=== PATIENT | male | born 1955 | race Caucasian/White ===

== ENCOUNTER 2017-02-22 11:44 | Observation (INO) | payer BC ==
[2017-02-22] MEDS ORDERED: Nitroglycerin 0.4 MG Tab.SL SL PRN (11:48)
[2017-02-22] MEDS ORDERED: Aspirin 81 MG Tab.Chew PO ONE (11:48)
[2017-02-22] MEDS ORDERED: Sodium Chloride 0.9% 2.5 ML Syringe FLUSH PRN (11:48)
[2017-02-22] MEDS ORDERED: Sodium Chloride 0.9% 10 ML Syringe FLUSH PRN (11:48)
--- NOTE | 2017-02-22 11:49 | EDM.PDOC ---
[id number] Seen by Provider: 02/22/17 11:47 Source of Information: Reports: Patient History Limitations: Reports: No limitations - History of Present Illness INITIAL COMMENTS - FREE TEXT/NARRATIVE: History of present illness: [] Patient presents with chest pressure is under his left shoulder blade with numbness radiating to his left arm that began at 10:00 this morning. Patient has not had these symptoms in the past. He denies any shortness of breath, sweating or syncope, he did have some lightheadedness and was not vertiginous. His chest pressure was rated at a 2/10 at its worst and is currently 0/10 while in the ED. Patient denies being a smoker. he does have a family history of heart disease Review of systems: As per history of present illness and below otherwise all systems reviewed and negative. Past medical history: As per history of present illness and as reviewed below otherwise noncontributory. Surgical history: As per history of present illness and as reviewed below otherwise noncontributory. Social history: No reported history of drug or alcohol abuse. Family history: As per history of present illness and as reviewed below otherwise noncontributory. Physical exam: General: Well developed, well nourished in NAD HEENT: Atraumatic, normocephalic, pupils reactive, negative for conjunctival pallor or scleral icterus, mucous membranes moist, throat clear, neck supple, nontender, trachea midline. Lungs: Clear to auscultation, breath sounds equal bilaterally, chest nontender. Heart: S1S2, regular, negative for clicks, rubs, or JVD. Abdomen: Soft, nondistended, nontender. Negative for masses or hepatosplenomegaly. Negative for costovertebral tenderness. Pelvis: Stable nontender. Genitourinary: Deferred. Rectal: Deferred. Extremities: Atraumatic, negative for cords or calf pain. Neurovascular unremarkable. Neuro: Awake, alert, oriented. Cranial nerves II through XII unremarkable. Cerebellum unremarkable. Motor and sensory unremarkable throughout. Exam nonfocal. Diagnostics: [] Cardiac workup done EKG shows sinus rhythm with PVCs and no acute ischemia, nonspecific T wave Therapeutics: [] Aspirin and nitroglycerin was given Impression: [] Chest pain, hypertension Plan: [] Admit for ACS Definitive disposition and diagnosis as appropriate pending reevaluation and review of above. - Related Data Allergies/ADRs: Allergies Allergy/AdvReac Type Severity Reaction Status Date / Time ty Allergy Numbness Verified 02/22/17 12:00 Home Meds: Home Meds . [No Known Home Meds] 02/22/17 [History] ED ROS GENERAL - Review of Systems Review Of Systems: See Below (See history of present illness) ED EXAM, GENERAL - Physical Exam Exam: See Below (See history of present illness) Course - Vital Signs Last Recorded V/S: Last Vital Signs Temp 36.7 C 02/22/17 13:27 Pulse 54 L 02/22/17 14:42 Resp 16 02/22/17 14:42 BP 145/82 H 02/22/17 14:42 Pulse Ox 96 02/22/17 14:42 - Orders/Labs/Meds Orders: Active Orders 24 hr Category Date Time Status Patient Status [ADT] Stat ADT 02/22/17 12:51 Active Sodium Chloride 0.9% [Saline Flush] Med 02/22/17 11:48 Active 10 ml FLUSH ASDIRECTED PRN Sodium Chloride 0.9% [Saline Flush] Med 02/22/17 11:48 Active 2.5 ml FLUSH ASDIRECTED PRN Peripheral IV Insertion Adult [OM.PC] Stat Oth 02/22/17 11:48 Ordered Medication Orders Acetaminophen (Tylenol) 650 mg PO Q4H PRN PRN Reason: Pain Albuterol (Proventil Neb Soln) 2.5 mg NEB Q4H PRN PRN Reason: Shortness Of Breath/wheezing Aspirin (Aspirin) 81 mg PO DAILY MOSES Ondansetron HCl (Zofran) 4 mg IVPUSH Q4H PRN PRN Reason: Nausea Sodium Chloride (Saline Flush) 10 ml FLUSH ASDIRECTED PRN PRN Reason: Keep Vein Open Last Admin: 02/22/17 12:18 Dose: 10 ml Sodium Chloride (Saline Flush) 2.5 ml FLUSH ASDIRECTED PRN PRN Reason: Keep Vein Open Last Admin: 02/22/17 12:18 Dose: 2.5 ml Labs: Laboratory Tests 02/22/17 02/22/17 02/22/17 Range/Units 11:52 11:52 11:52 WBC 8.02 (4.0-11.0) K/uL RBC 5.12 (4.50-5.90) M/uL Hgb 15.2 (13.0-17.0) g/dL Hct 44.4 (38.0-50.0) % MCV 86.7 (80.0-98.0) fL MCH 29.7 (27.0-32.0) pg MCHC 34.2 (31.0-37.0) g/dL RDW Std Deviation 41.3 (28.0-62.0) fl RDW Coeff of Tamara 13 (11.0-15.0) % Plt Count 233 (150-400) K/uL MPV 9.30 (7.40-12.00) fL Neut % (Auto) 55.7 (48.0-80.0) % Lymph % (Auto) 30.9 (16.0-40.0) % [place] % (Auto) 9.9 (0.0-15.0) % Eos % (Auto) 3.0 (0.0-7.0) % Baso % (Auto) 0.5 (0.0-1.5) % Neut # (Auto) 4.5 (1.4-5.7) K/uL Lymph # (Auto) 2.5 H (0.6-2.4) K/uL [place] # (Auto) 0.8 (0.0-0.8) K/uL Eos # (Auto) 0.2 (0.0-0.7) K/uL Baso # (Auto) 0.0 (0.0-0.1) K/uL Nucleated RBC % 0.0 /100WBC Nucleated RBCs # 0 K/uL Sodium 142 (136-146) mmol/L Potassium 3.9 (3.5-5.1) mmol/L Chloride 110 (98-110) mmol/L Carbon Dioxide 25 (21-31) mmol/L BUN 13 (6.0-23.0) mg/dL Creatinine 0.9 (0.6-1.5) mg/dL Est Cr Clr Drug Dosing 98.94 mL/min Estimated GFR (MDRD) > 60.0 ml/min Glucose 95 (60-110) mg/dL Hemoglobin A1c (0.0-6.0) % Calcium 9.0 (8.8-10.8) mg/dL Magnesium (1.5-2.3) mEq/L Total Bilirubin 0.8 (0.1-1.5) mg/dL AST 23 (5-40) IU/L ALT 18 (8-54) IU/L Alkaline Phosphatase 69 (40-150) Troponin I < 0.10 (0.0-0.29) NG/ML Total Protein 7.0 (6.0-8.0) g/dL Albumin 4.2 (3.4-4.8) g/dL Globulin 2.8 (2.0-3.5) g/dL Albumin/Globulin Ratio 1.5 (1.3-2.8) 02/22/17 02/22/17 Range/Units 11:52 11:52 WBC (4.0-11.0) K/uL RBC (4.50-5.90) M/uL Hgb (13.0-17.0) g/dL Hct (38.0-50.0) % MCV (80.0-98.0) fL MCH (27.0-32.0) pg MCHC (31.0-37.0) g/dL RDW Std Deviation (28.0-62.0) fl RDW Coeff of Tamara (11.0-15.0) % Plt Count (150-400) K/uL MPV (7.40-12.00) fL Neut % (Auto) (48.0-80.0) % Lymph % (Auto) (16.0-40.0) % [place] % (Auto) (0.0-15.0) % Eos % (Auto) (0.0-7.0) % Baso % (Auto) (0.0-1.5) % Neut # (Auto) (1.4-5.7) K/uL Lymph # (Auto) (0.6-2.4) K/uL [place] # (Auto) (0.0-0.8) K/uL Eos # (Auto) (0.0-0.7) K/uL Baso # (Auto) (0.0-0.1) K/uL Nucleated RBC % /100WBC Nucleated RBCs # K/uL Sodium (136-146) mmol/L Potassium (3.5-5.1) mmol/L Chloride (98-110) mmol/L Carbon Dioxide (21-31) mmol/L BUN (6.0-23.0) mg/dL Creatinine (0.6-1.5) mg/dL Est Cr Clr Drug Dosing mL/min Estimated GFR (MDRD) ml/min Glucose (60-110) mg/dL Hemoglobin A1c 5.4 (0.0-6.0) % Calcium (8.8-10.8) mg/dL Magnesium 2.3 (1.5-2.3) mEq/L Total Bilirubin (0.1-1.5) mg/dL AST (5-40) IU/L ALT (8-54) IU/L Alkaline Phosphatase (40-150) Troponin I (0.0-0.29) NG/ML Total Protein (6.0-8.0) g/dL Albumin (3.4-4.8) g/dL Globulin (2.0-3.5) g/dL Albumin/Globulin Ratio (1.3-2.8) Meds: Medications Generic Name Dose Route Start Last Admin Trade Name Freq PRN Reason Stop Dose Admin Acetaminophen 650 mg 02/22/17 13:03 Tylenol PO Q4H PRN Pain Albuterol 2.5 mg 02/22/17 14:04 Proventil Neb Soln NEB Q4H PRN Shortness Of Breath/wheezing Aspirin 81 mg 02/23/17 09:00 Aspirin PO DAILY MOSES Ondansetron HCl 4 mg 02/22/17 13:03 Zofran IVPUSH Q4H PRN Nausea Sodium Chloride 10 ml 02/22/17 11:48 02/22/17 12:18 Saline Flush FLUSH 10 ml ASDIRECTED PRN Administration Keep Vein Open Sodium Chloride 2.5 ml 02/22/17 11:48 02/22/17 12:18 Saline Flush FLUSH 2.5 ml ASDIRECTED PRN Administration Keep Vein Open Discontinued Medications Generic Name Dose Route Start Last Admin Trade Name Freq PRN Reason Stop Dose Admin Aspirin 324 mg 02/22/17 11:48 02/22/17 12:17 Aspirin PO 02/22/17 11:49 324 mg ONETIME ONE Administration Metoprolol Tartrate 25 mg 02/22/17 14:05 02/22/17 14:42 Lopressor PO 02/22/17 14:06 25 mg ONETIME ONE Administration Nitroglycerin 0.4 mg 02/22/17 11:48 Nitrostat SL 02/22/17 11:59 Q5M PRN Chest Pain Departure - Departure Time of Disposition: 13:30 Disposition: Admitted As Inpatient 65 Condition: good Clinical Impression: ACS (acute coronary syndrome) - My Orders Last 24 Hours: My Active Orders 02/22/17 11:48 Sodium Chloride 0.9% [Saline Flush] 10 ml FLUSH ASDIRECTED PRN Sodium Chloride 0.9% [Saline Flush] 2.5 ml FLUSH ASDIRECTED PRN Peripheral IV Insertion Adult [OM.PC] Stat 02/22/17 12:51 Patient Status [ADT] Stat - Assessment/Plan Last 24 Hours: My Active Orders 02/22/17 11:48 Sodium Chloride 0.9% [Saline Flush] 10 ml FLUSH ASDIRECTED PRN Sodium Chloride 0.9% [Saline Flush] 2.5 ml FLUSH ASDIRECTED PRN Peripheral IV Insertion Adult [OM.PC] Stat 02/22/17 12:51 Patient Status [ADT] Stat
[2017-02-22 12:18] LABS: CHLORIDE,CL 110 mmol/L (98-110); SODIUM,NA 142 mmol/L (136-146)
--- NOTE | 2017-02-22 12:33 | CR ---
EXAMINATION: Portable chest radiograph. HISTORY: Shortness of breath. Comparison: 05/26/2012 FINDINGS: The trachea is midline. The cardiomediastinal silhouette is within normal limits. No pulmonary infil trates, effusions or pneumothorax. Osseous structures appear unremarkable. IMPRESSION: No acute cardiopulmonary process.
[2017-02-22] MEDS ORDERED: Acetaminophen 325 MG Tab PO PRN (13:03)
[2017-02-22] MEDS ORDERED: Ondansetron 4 MG/2 ML SDV IVPUSH PRN (13:03)
--- NOTE | 2017-02-22 13:15 | PCM.HP ---
H&P History of Present Illness - General Date of Service: 02/22/17 Source of Information: Patient, Family ( at bedside) History Limitations: Reports: No limitations - History of Present Illness Initial Comments - Free Text/Narative: This 61 year old male no significant pmh presented to the ED today with l sided chest discomfort. He reports he was standing and working on some tools at a workbench and felt SOB, some lower left chest pressure that radiated some numbness to his L arm. He reports the pain did not worsen with activity but didn 't necessarily change with rest. He reports the pain went away when he got to the ED after he was given ASA. He was not give nitroglycerin. He reports having a cold a couple weeks ago and feels like it is still lingering in his chest, and now states the discomfort in his chest is more a feeling of congestion. He has been more SOB with activity the last two weeks, but otherwise has had no SOB with activity and is very activity in his daily life, he walks 10 acres with his dog daily. He does not smoke or use any tobacco products, no alcohol use or recreational drug use. He does have a family history of CAD, his father recent had mitral valve clipping and his brother had triple bypass recently as well. 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 He denies palpitations, N/V, abdominal pain or urinary symptoms. No black or blood BMs. He takes no medication at home. In the ED, CBC and BMP WNL. Initial troponin negative. ASA was given. EKG SR HR 90s, no st segment changes, PACs and PVCs noted. CXR negative for acute cardiopulmonary process. He will be admitted for chest pain R/O ACS. PCP Pam Leal. Midsternal chest/left shoulder Pain Score (Numeric/FACES): 2 - Related Data Allergies/Adverse Reactions: Allergies Allergy/AdvReac Type Severity Reaction Status Date / Time juliwi Allergy Numbness Verified 02/22/17 12:00 Home Medications: Home Meds . [No Known Home Meds] 02/22/17 [History] Past Medical History HEENT History: Reports: None Cardiovascular History: Reports: None. Denies: CAD, Heart Failure, High cholesterol, Hypertension, MD Respiratory History: Reports: None. Denies: Asthma, COPD, PE Gastrointestinal History: Reports: None. Denies: Diverticulosis, GERD, GI bleed Genitourinary History: Reports: None. Denies: BPH, Chronic renal insuffiency Musculoskeletal History: Reports: None Neurological History: Reports: None. Denies: CVA, TIA Psychiatric History: Reports: None Endocrine/Metabolic History: Reports: None. Denies: Diabetes, type II, Hypothyroidism Hematologic History: Reports: None Immunologic History: Reports: None Oncologic (Cancer) History: Reports: None Dermatologic History: Reports: None - Infectious Disease History Infectious Disease History: Reports: None - Past Surgical History Head Surgeries/Procedures: Reports: None HEENT Surgical History: Reports: None Cardiovascular Surgical History: Reports: None Respiratory Surgical History: Reports: None GI Surgical History: Reports: None Male Surgical History: Reports: None Endocrine Surgical History: Reports: None Neurological Surgical History: Reports: None Musculoskeletal Surgical History: Reports: None Dermatological Surgical History: Reports: None Social & Family History - Family History Family Medical History: Noncontributory Cardiac: Reports: CAD, Hypertension, Other (see below) (brother had triple bypass) - Tobacco Use Smoking Status *Q: Never Smoker Second Hand Smoke Exposure: No - Caffeine Use Caffeine Use: Reports: Coffee - Recreational Drug Use Recreational Drug Use: No H&P Review of Systems - Review of Systems: Review Of Systems: See Below General: Reports: no symptoms. Denies: fever, chills, malaise HEENT: Reports: post nasal drip. Denies: sinus congestion, sore throat Pulmonary: Reports: Shortness of Breath (intermittently), Cough, Other ( congested feeling, ). Denies: Sputum Cardiovascular: Reports: dyspnea on exertion (intermittently last 2 weeks). Denies: chest pain, palpitations, edema, lightheadedness, syncope Gastrointestinal: Reports: No symptoms. Denies: Abdominal pain, Black stool, Bloody stool, Decreased appetite, Nausea, Vomiting Genitourinary: Reports: no symptoms. Denies: dysuria, frequency, burning Musculoskeletal: Reports: no symptoms. Denies: neck pain Skin: Reports: no symptoms Psychiatric: Reports: no symptoms Neurological: Reports: No Symptoms. Denies: Headache, Seizure Hematologic/Lymphatic: Reports: no symptoms Immunologic: Reports: no symptoms Exam - Exam Exam: See Below - Vital Signs Vital Signs: Last Vital Signs Temp 97.8 F 02/22/17 11:54 Pulse 70 02/22/17 12:18 Resp 16 02/22/17 11:54 BP 146/88 H 02/22/17 12:18 Pulse Ox 99 02/22/17 11:54 Weight: 92.533 kg - Exam Quality Assessment: DVT prophylaxis General: alert, oriented, cooperative HEENT: Conjunctiva clear, EACs clear, EOMI, Hearing intact, Mucosa moist & pink , Nares patent, Posterior pharynx clear, PERRLA Lungs: Clear to auscultation, Normal respiratory effort Cardiovascular: regular rate, irregular rhythm. No: systolic murmur Abdomen: normal bowel sounds, soft Back Exam: normal inspection, full range of motion, NT Extremities: normal inspection, normal pulses Neuro Extensive - Mental Status: alert, oriented x3, normal mood/affect, normal cognition Neuro Extensive - Motor, Sensory, Reflexes: CN II-XII intact, normal gait, normal reflexes Psychiatric: alert, normal affect, normal mood - Patient Data Result Diagrams: 02/22/17 11:52 02/22/17 11:52 EKG INTERPRETATION EKG Date: 02/22/17 Rhythm: NSR Rate (beats/min): 96 P-wave: present QRS: normal ST-T: normal EKG Interpretation Comments: SR with frequent PACs and PVCs. *Q Meaningful Use (ADM) - VTE *Q VTE Criteria *Q: - VTE Risk Assess *Q Each Risk Factor Represents 1 Point: None Total Score 1 Point Risk Factors: 0 Each Risk Factor Represents 2 Points: Age 60 - 74 Years Total Score 2 Point Risk Factors: 2 Each Risk Factor Represents 3 Points: None Total Score 3 Point Risk Factors: 0 Each Risk Factor Represents 5 Points: None Total Score 5 Point Risk Factors: 0 Venous Thromboembolism Risk Factor Score *Q: 2 - Stroke *Q Stroke Criteria *Q: - AMI *Q AMI Criteria *Q: - Problem List (1) Chest pain SNOMED Code(s): 09416724 ICD Code: R07.9 - CHEST PAIN, UNSPECIFIED Status: Acute Current Visit: Yes Qualifiers: Chest pain type: other chest pain Qualified Code(s): R07.89 - Other chest pain; R07.8 - Other chest pain (2) Irregular heart beat SNOMED Code(s): 515683270, 023635873, 352603581 ICD Code: I49.9 - CARDIAC ARRHYTHMIA, UNSPECIFIED Status: Acute Current Visit: Yes (3) HTN (hypertension) SNOMED Code(s): 32552821 ICD Code: I10 - ESSENTIAL (PRIMARY) HYPERTENSION Status: Acute Current Visit: Yes Qualifiers: Hypertension type: essential hypertension Qualified Code(s): I10 - Essential (primary) hypertension Problem List Initiated/Reviewed/Updated: Yes Orders Last 24hrs: Active Orders 24 hr Category Date Time Status Telemetry Monitoring [Cardiac Monitoring] [RC] . Care 02/22/17 13:08 Active DIRECTED Aspirin Med 02/23/17 09:00 Ordered 81 mg PO DAILY Medication Orders Acetaminophen (Tylenol) 650 mg PO Q4H PRN PRN Reason: Pain Aspirin (Aspirin) 81 mg PO DAILY MOSES Ondansetron HCl (Zofran) 4 mg IVPUSH Q4H PRN PRN Reason: Nausea Sodium Chloride (Saline Flush) 10 ml FLUSH ASDIRECTED PRN PRN Reason: Keep Vein Open Last Admin: 02/22/17 12:18 Dose: 10 ml Sodium Chloride (Saline Flush) 2.5 ml FLUSH ASDIRECTED PRN PRN Reason: Keep Vein Open Last Admin: 02/22/17 12:18 Dose: 2.5 ml Assessment/Plan Comment:: This 61 year old male admitted with chest pain R/O ACS 1. Chest pain: Will monitor on telemetry. Serial troponins. Check A1c, 5.4, and Lipid panel in am. ASA. 2. Elevated BP: Will start Metoprolol due to elevated BP and PVCS and PACs noted. WIll monitor HR and BP. Magnesium 2.3 VTE: SCDs
[2017-02-22] MEDS ORDERED: Albuterol 0.083% 2.5 MG/3 ML Neb Soln NEB PRN (14:04)
[2017-02-22] MEDS ORDERED: Metoprolol Tartrate 25 MG Tab PO ONE (14:05)
[2017-02-23 07:28] VITALS: BP 139/79
[2017-02-23] MEDS ORDERED: Aspirin 81 MG Tab.Chew PO SCH (09:00)
[2017-02-23] MEDS ORDERED: Metoprolol Tartrate 25 MG Tab PO SCH (09:00)
--- NOTE | 2017-02-23 09:32 | PCM.DCSUM1 ---
Discharge Summary - Hospital Course Brief History: This 61 year old male no significant pmh presented to the ED 02/22 with L sided chest discomfort. He reports he was standing and working on some tools at a workbench and felt SOB, some lower left chest pressure that radiated some numbness to his L arm. He reports the pain did not worsen with activity but didn't necessarily change with rest. He reports the pain went away when he got to the ED after he was given ASA. He was not give nitroglycerin. He reports having a cold a couple weeks ago and feels like it is still lingering in his chest, and now states the discomfort in his chest is more a feeling of congestion. He has been more SOB with activity the last two weeks, but otherwise has had no SOB with activity and is very activity in his daily life, he walks 10 acres with his dog daily. He does not smoke or use any tobacco products, no alcohol use or recreational drug use. He does have a family history of CAD, his father recent had mitral valve clipping and his brother had triple bypass recently as well. 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 He denies palpitations, N/V, abdominal pain or urinary symptoms. No black or blood BMs. He takes no medication at home. In the ED, CBC and BMP WNL. Initial troponin negative. ASA was given. EKG SR HR 90s, no ST segment changes, PACs and PVCs noted. CXR negative for acute cardiopulmonary process. He will be admitted for chest pain R /O ACS. PCP Pam Leal. - Discharge Data Discharge Date: 02/23/17 Discharge Disposition: Home, Self-Care 01 Condition: Good - Discharge Diagnosis/Problem(s) (1) Chest pain SNOMED Code(s): 24189947 ICD Code: R07.9 - CHEST PAIN, UNSPECIFIED Status: Acute Current Visit: Yes Qualifiers: Qualified Code(s): R07.89 - Other chest pain; R07.8 - Other chest pain (2) Irregular heart beat SNOMED Code(s): 775958947, [id number], 620597745 ICD Code: I49.9 - CARDIAC ARRHYTHMIA, UNSPECIFIED Status: Acute Current Visit: Yes (3) HTN (hypertension) SNOMED Code(s): 68164049 ICD Code: I10 - ESSENTIAL (PRIMARY) HYPERTENSION Status: Acute Current Visit: Yes Qualifiers: Qualified Code(s): I10 - Essential (primary) hypertension (4) Afib SNOMED Code(s): 87610921 ICD Code: I48.91 - UNSPECIFIED ATRIAL FIBRILLATION Status: Acute Current Visit: Yes Qualifiers: Qualified Code(s): I48.0 - Paroxysmal atrial fibrillation - Patient Instructions Diet: Heart Healthy Diet Activity: As Tolerated, No Strenuous Activities Driving: May Drive Today Showering/Bathing: May Shower Notify Provider of: Fever, Increased Pain, Swelling and Redness, Drainage, Nausea and/or Vomiting - Discharge Plan Prescriptions/Med Rec: Aspirin 81 mg PO DAILY #30 tab.chew Metoprolol Succinate 50 mg PO DAILY #30 tab.er.24h Home Medications: Home Meds Aspirin 81 mg PO DAILY #30 tab.chew 02/23/17 [Rx] Metoprolol Succinate 50 mg PO DAILY #30 tab.er.24h 02/23/17 [Rx] Patient Handouts: Metoprolol extended-release tablets, Hypertension, Easy-to- Read, Acute Coronary Syndrome, Aspirin, ASA oral tablets Referrals: [facility] [Outside] González Doran MD [Physician] - 02/28/17 8:00 am (follow up in 1 week) - Discharge Summary/Plan Comment DC Time >30 min.: No Discharge Summary/Plan Comment: Discharge Diagnoses: New onset Afib, paroxysmal Arnaldo was monitored overnight on telemetry. IT was noted overnight to go into atrial fibrillation and then back to SR which happened again this morning. He reported this morning he does get palpitations intermittently at night. He doesn 't feel short of breath with these, but can definitely feel palpitations and no chest pain. Yesterday he doesn't recall feeling palpitations when he had this chest discomfort but he was up moving. He was started on Metoprolol yesterday afternoon due to BP elevation and irregular HR, not afib at the time. This morning he is doing well, very eager for discharge. No further chest discomfort , but did have palpitations. TSH 1.48. Will order ECHO as outpatient, patient wants to leave and doesn't want to wait for exam. Will arrange follow up with Dr. Doran, Cardiology in next week for new onset afib. CHADS-VASC 1, will send home with ASA daily as well as Metoprolol XL 50 mg. Would recommend stress test once afib if controlled. He is to return to ED or clinic if concerns should arise. - General Info Date of Service: 02/23/17 Admission Dx/Problem (Free Text: Chest discomfort, new onset afib. Subjective Update: Feeling well this morning, HR regular, had palpitations overnight. No chest pain or SOB. Up ambulating in hallway and in room. at bedside. Functional Status: Reports: pain controlled, tolerating diet, ambulating, urinating - Review of Systems General: Reports: No Symptoms. Denies: Fever HEENT: Reports: no symptoms. Denies: sinus congestion, sore throat Pulmonary: Reports: no symptoms. Denies: shortness of breath Cardiovascular: Reports: Palpitations (intermittently). Denies: Chest Pain, Edema Gastrointestinal: Reports: No symptoms. Denies: Abdominal pain, Nausea, Vomiting Genitourinary: Reports: no symptoms. Denies: dysuria, frequency, burning Musculoskeletal: Reports: no symptoms Skin: Reports: no symptoms Neurological: Reports: No Symptoms Psychiatric: Reports: no symptoms - Patient Data Vitals - Most Recent: Last Vital Signs Temp 98 F 02/23/17 07:26 Pulse 68 02/23/17 09:09 Resp 18 02/23/17 07:26 BP 139/79 02/23/17 09:09 Pulse Ox 94 L 02/23/17 07:26 Weight - Most Recent: 92.533 kg I&O - Last 24 hours: Intake & Output 02/22/17 02/23/17 02/23/17 22:59 06:59 14:59 Intake Total 600 300 Output Total 825 775 Balance -225 -631 Lab Results - Last 24 hrs: Laboratory Results - last 24 hr 02/22/17 02/23/17 02/23/17 Range/Units 17:52 00:17 04:52 Magnesium (1.5-2.3) mEq/L Troponin I < 0.10 < 0.10 (0.0-0.29) NG/ML Triglycerides 71 (10-190) mg/dL Cholesterol 175 (131-240) mg/dL LDL Cholesterol, Calc 124 (60-180) mg/dL VLDL Cholesterol 14 (5-55) mg/dL HDL Cholesterol 37 L (40-80) mg/dL Cholesterol/HDL Ratio 4.7 (3.3-6.0) 02/23/17 Range/Units 04:52 Magnesium 1.9 (1.5-2.3) mEq/L Troponin I (0.0-0.29) NG/ML Triglycerides (10-190) mg/dL Cholesterol (131-240) mg/dL LDL Cholesterol, Calc (60-180) mg/dL VLDL Cholesterol (5-55) mg/dL HDL Cholesterol (40-80) mg/dL Cholesterol/HDL Ratio (3.3-6.0) Med Orders - Current: Current Medications Acetaminophen (Tylenol) 650 mg PO Q4H PRN PRN Reason: Pain Albuterol (Proventil Neb Soln) 2.5 mg NEB Q4H PRN PRN Reason: Shortness Of Breath/wheezing Aspirin (Aspirin) 81 mg PO DAILY [facility] Last Admin: 02/23/17 09:10 Dose: 81 mg Metoprolol Tartrate (Lopressor) 25 mg PO Q12HR [facility] Last Admin: 02/23/17 09:09 Dose: 25 mg Ondansetron HCl (Zofran) 4 mg IVPUSH Q4H PRN PRN Reason: Nausea Sodium Chloride (Saline Flush) 10 ml FLUSH ASDIRECTED PRN PRN Reason: Keep Vein Open Last Admin: 02/22/17 12:18 Dose: 10 ml Sodium Chloride (Saline Flush) 2.5 ml FLUSH ASDIRECTED PRN PRN Reason: Keep Vein Open Last Admin: 02/22/17 12:18 Dose: 2.5 ml Discontinued Medications Aspirin (Aspirin) 324 mg PO ONETIME ONE Stop: 02/22/17 11:49 Last Admin: 02/22/17 12:17 Dose: 324 mg Metoprolol Tartrate (Lopressor) 25 mg PO ONETIME ONE Stop: 02/22/17 14:06 Last Admin: 02/22/17 14:42 Dose: 25 mg Nitroglycerin (Nitrostat) 0.4 mg SL Q5M PRN PRN Reason: Chest Pain Stop: 02/22/17 11:59 - Exam General: Reports: alert, oriented, cooperative Lungs: Reports: Clear to auscultation, Normal respiratory effort Cardiovascular: Reports: Regular Rate, Regular Rhythm, No Murmurs. Denies: Irregular Rhythm, Tachycardia Abdomen: Reports: bowel sounds present, soft, no tenderness, no distension Extremities: Reports: no edema, normal pulses Neurological: Reports: no new focal deficit Psy/Mental Status: Reports: alert, normal affect, normal mood *Q Meaningful Use (DIS) - VTE *Q VTE Criteria *Q: - Stroke *Q Stroke Criteria *Q: - AMI *Q AMI Criteria *Q:
== END 2017-02-23 11:45 | disposition home or self-care (01) ==
LOC: MW.ED 11:44 → MW.MS 13:03
PROVIDERS: ADMIT Internal Medicine; ATTEND Internal Medicine
DX: R07.9 Chest pain, unspecified (principal); I49.9 Cardiac arrhythmia, unspecified; I10 Essential (primary) hypertension; Z91.018 Allergy to other foods; Z82.49 Family history of ischemic heart disease and other diseases of the circulatory system
CPT/HCPCS: 36415; 71010; 80053; 80061; 83036; 83735; 84443; 84484; 85025; 93005; 99285; A9270; G0378

== ENCOUNTER → 2017-02-24 | Outpatient (CLI) | payer BC ==
--- NOTE | 2017-02-24 14:22 | ECHO ---
EXAM DATE: 02/24/17 The echocardiogram report can be seen in this patient's EMR (Electronic Medical Record) in the Reports section. BERNARDINO
== END ==
LOC: MW.US 08:16
PROVIDERS: ATTEND Nurse Practitioner Family
DX: R07.9 Chest pain, unspecified (principal); I48.91 Unspecified atrial fibrillation
CPT/HCPCS: 93306

== ENCOUNTER → 2017-03-14 | Outpatient (CLI) | payer BC ==
--- NOTE | 2017-03-14 08:58 | PCM.PRNOTE ---
- Free Text/Narrative Note: Exercise MIBI Indication CP Sestamibi Tc99 25 MCi was given at the peak HR Patient was brought to the stress test lab in postabsorptive state verbal and paper consent was obtained from patient Vital signs at resting state blood pressure of 122/78 with a heart rate of81 EKG shows sinus rhythm no ST changes no Q waves Maximal heart rate of 157 and target heart rate is 134 Patient reached the target heart rate, completed stage IV Andrew protocol Peak blood pressure is 154/80 Total exercise time of 9.[address] depression V3-V6 with a peak heart rate no arrhythmia METS 10.1 No symptom of chest pain or feeling dizzy Impression Normal hemodynamics, normal chronotropic, excellent exercise capacity, negative for ischemia on EKG Plan Nuclear portion pending
--- NOTE | 2017-03-14 10:51 | NM ---
EXAMINATION: Nuclear medicine myocardial perfusion study with exercise stress test. HISTORY: Chest pain. PROCEDURE: Patient exercised according to Andrew protocol for 9 minutes and 33 seconds and achieved maximal hear t rate of 157 beats per minute. Adequate exercise. Following intravenous administration of 26.7 mCi of technetium 99m sestamibi, stress SPECT images including gating imaging was performed. FINDINGS: Stress myocardial SPECT images demonstrates mildly decreased perfusion along the inferior wall. Rev iewing source images this likely represents diaphragmatic attenuation. Review of gated images demonstrates mild global hypokinesis most notable along the inferior wall. Th e left ventricular ejection fraction is 42 %. The left ventricular chamber size is normal. IMPRESSION: 1. Mild decreased perfusion along the inferior wall, correlate with rest imaging. 2. Mild global hypokinesis and ejection fraction of 42 %.
== END ==
LOC: MW.NM 06:24
PROVIDERS: ATTEND Internal Medicine
DX: R07.9 Chest pain, unspecified (principal); I51.89 Other ill-defined heart diseases
CPT/HCPCS: 78451; 93017; A9500

== ENCOUNTER → 2017-03-17 | Outpatient (CLI) | payer BC ==
--- NOTE | 2017-03-17 13:23 | NM ---
EXAMINATION: Myocardial perfusion study HISTORY: Chest pain COMPARISON: 03/14/2017 TECHNIQUE: Additional gated images were obtained at rest following the administration of 27.3 mCi of technetium 99m labeled sestamibi. FINDINGS/IMPRESSION: The previously demonstrated decreased perfusion along the inferior wall is rudy lar at rest testing diaphragmatic attenuation. No definite myocardial ischemia. The ejection fractio n however at rest is 49% at rest versus 40% at stress. Wall motion is similar with a TID of 1.11.
== END ==
LOC: MW.NM 09:17
PROVIDERS: ATTEND Internal Medicine
DX: R07.9 Chest pain, unspecified (principal)
CPT/HCPCS: 78451; A9500

== ENCOUNTER 2021-10-21 08:49 | Emergency (ER) | payer BC, MEDICARE ==
[2021-10-21] MEDS ORDERED: Sodium Chloride 0.9% 10 ML Syringe FLUSH PRN (10:05)
[2021-10-21] MEDS ORDERED: Sodium Chloride 0.9% 2.5 ML Syringe FLUSH PRN (10:05)
--- NOTE | 2021-10-21 10:05 | PCM.EKG ---
#1 Interpretation Time: 09:55 EKG Interpretation Comments: 134, A. fib with RVR, nonspecific ST/T findings
[2021-10-21 10:25] LABS: CORONAVIRUS COVID-19 NAA POSITIVE (NEGATIVE); INFLUENZA A NAA NEGATIVE (NEGATIVE); INFLUENZA B NAA NEGATIVE (NEGATIVE)
[2021-10-21] MEDS ORDERED: Sodium Chloride 0.9% 1,000 ML IV ONE (10:36)
--- NOTE | 2021-10-21 10:38 | EDM.PDOC ---
ED HPI GENERAL MEDICAL PROBLEM - General Chief Complaint: General Stated Complaint: VOMITING,DIARRHEA, NO ENERGY FOR SEVERAL DAYS Time Seen by Provider: 10/21/21 10:02 Source of Information: Reports: Patient History Limitations: Reports: No Limitations - History of Present Illness INITIAL COMMENTS - FREE TEXT/NARRATIVE: HISTORY AND PHYSICAL: History of present illness: Patient is a 65-year-old male, the history of hypertension, and atrial fibrillation, who presents emergency room today with concern of decreased energy, cough, shortness of breath, chest pain that has been constant for 2 weeks. Patient states that he has also been tired and rundown and has had a decrease in appetite. Patient states he feels like his atrial fibrillation is varying from a normal heart rate to sometimes faster and then back to normal. Patient states he started noticing this more today. Patient states he does follow with the chief program officer Dr. Ivan for his atrial fibrillation and does not leave that he is on any blood thinning medications. Patient states he has not taken anything for symptoms and denies any other symptoms or concerns. Patient denies fever, chills. Denies headache, neck stiff ness, change in vision, syncope, or near syncope. Denies nausea, vomiting, abdominal pain, diarrhea, constipation, or dysuria. Has not noted any blood in urine or stool. Patient has been eating and drinking appropriately. Review of systems: As per history of present illness and below otherwise all systems reviewed and negative. Past medical history: As per history of present illness and as reviewed below otherwise noncontributory. Surgical history: As per history of present illness and as reviewed below otherwise noncontributory. Social history: See social history for further information Family history: As per history of present illness and as reviewed below otherwise noncontributory. Physical exam: General: Patient is alert, oriented, and in no acute distress. Patient sitting comfortably on exam table. Vitals stable and reviewed by me. HEENT: Atraumatic, normocephalic, pupils equal and reactive bilaterally, negative for conjunctival pallor or scleral icterus, mucous membranes moist, throat clear, neck supple, nontender, trachea midline. No drooling or trismus noted. No meningeal signs. No hot potato voice noted. Lungs: Dry cough on exam. Otherwise, clear to auscultation, breath sounds equal bilaterally, chest nontender. Heart: S1S2, irregular rate and rhythm without overt murmur Abdomen: Soft, nondistended, nontender. Negative for masses or hepatosplenome fam. Negative for costovertebral tenderness. Pelvis: Stable nontender. Genitourinary: Deferred. Rectal: Deferred. Skin: Intact, warm, dry. No lesions or rashes noted. Extremities: Atraumatic, negative for cords or calf pain. Neurovascular unremarkable. Neuro: Awake, alert, oriented. Cranial nerves II through XII unremarkable. Cerebellum unremarkable. Motor and sensory unremarkable throughout. Exam nonfocal. Medical Decision Making: Patient is a 65-year-old male, with a history of hypertension, and atrial fibrillation, who presents emergency room today with concern of 2-week history of cough, shortness of breath, chest pain, fatigue. Upon arrival to the ED, patient is vitally stable, tired but well-appearing on exam. Patient does have a dry cough on exam. Otherwise exam is unremarkable. See Dr. Gonzalez's dictation for specific EKG interpretation. Otherwise, atrial fibrillation with RVR rate 134. At bedside, patient's heart rate is only varying from the 70s to 90s. He does not appear to be in RVR. Patient possibly is varying from normal rate to mildly tachycardic 110s. Patient has not taken his home dose of metoprolol over the past 2 weeks which patient did not inform me of on his HPI and this was noted by his the patient agrees. I will give patient his home dose of metoprolol today. CBC mild derangements are unremarkable. CMP does show mild hyponatremia at 135, BUN is elevated in isolation at 21. Glucose elevated at 148. Total bilirubin elevated at 1.4, AST mildly elevated at 54. ALT is within normal limits. Alk phos mildly elevated at 44. Troponin negative. COVID-19 is positive. Chest x-ray shows bilateral patchy pulmonary infiltrates. Repeat EKG does show atrial fibrillation with improved rate of 114. Angiography of the chest shows no sign of acute pulmonary embolism. Multifocal pulmonary opacities with radiographic pattern compatible with COVID-19 viral infection. Upon reevaluation of patient, following the metoprolol, his heart rate has started to normalize and consistently between 70 to 90 bpm and he no longer has brief episodes of tachycardia as when he first arrived. I discussed with patient closely monitoring his oxygen at home. His oxygen has been consistently 92 to 94% here in the emergency room and patient is breathing comfortably. He is outside of the timeframe window to receive monoclonal antibody infusion. I discussed with patient that he needs to start taking his metoprolol again and to start all of his prescribed medications as written to him. All signs and symptoms that were prompt return to the ED thoroughly discussed with patient. Strict return precautions thoroughly discussed. Discussed importance for close follow-up with his primary care provider and chief program officer. Voices understanding and is agreeable to plan of care. Denies any further questions or concerns at this time. Diagnostics: EKG, CBC, CMP, CXR, Trop, Ddimer, Ang CT Chest, COVID/Flu Therapeutics: Metoprolol Prescription: None Impression: COVID pneumonia Atrial fibrillation Medication noncompliance Plan: 1. Your COVID-19 screening is positive. That means you do have the coronavirus and are considered contagious. Your vital signs and oxygen saturation are well enough that you were able to monitor your symptoms at home. Continue to monitor for trouble breathing, new confusion or inability to arouse, bluish lips or face or any of the other symptoms we discussed -if this occurs please return to the emergency room.Continue to monitor your health at home for worsening symptoms so that you can be taken care of and treated quickly if needed. 2. Please self quarantine until 10 days have passed since your symptoms began AND you are fever free (<100.4 degrees fahrenheit) for 24 hours without the use of fever-reducing medications AND symptoms are improving. You should restrict activities outside of your home, except for getting medical care. Do not go to work, school, or public areas. Avoid using public transportation, ride-sharing, or taxis. Inform any persons that you have been in contact with since you started becoming symptomatic that you have tested positive; they should be made aware and take the appropriate steps as needed. 3. You may alternate Tylenol and ibuprofen as needed for pain and fever management. 4. The [facility] health department will be calling you and following up with you. The [place] COVID 19 Hotline phone number , They are open Tuesday - Tuesday 7am - 7pm. Follow up with your primary care provider for re-evaluation and re-testing after quarantine and discuss when you should be seen. 6. For more specific guidelines regarding isolation/quarantine please visit this website. https://www.health.[place].gov/sites/www/files/documents/Files/GEOVANNY/coronavirus/Factsh eet_for_People_With_COVID-19.pdf 7. Start your home medications as prescribed to you as discussed including metoprolol. Definitive disposition and diagnosis as appropriate pending reevaluation and review of above. abdomen Pain Score (Numeric/FACES): 7 - Related Data Allergies Allergy/AdvReac Type Severity Reaction Status Date / Time juliwi Allergy Numbness Verified 10/21/21 09:20 Home Meds: Home Meds Aspirin 81 mg PO DAILY #30 tab.chew 02/23/17 [Rx] Metoprolol Succinate 50 mg PO DAILY #30 tab.er.24h 02/23/17 [Rx] Past Medical History HEENT History: Reports: None Cardiovascular History: Reports: Hypertension Respiratory History: Reports: None Gastrointestinal History: Reports: None Genitourinary History: Reports: None Musculoskeletal History: Reports: None Neurological History: Reports: None Psychiatric History: Reports: None Endocrine/Metabolic History: Reports: None Hematologic History: Reports: None Immunologic History: Reports: None Oncologic (Cancer) History: Reports: None Dermatologic History: Reports: None - Infectious Disease History Infectious Disease History: Reports: Chicken Pox, Measles - Past Surgical History Head Surgeries/Procedures: Reports: None HEENT Surgical History: Reports: None Cardiovascular Surgical History: Reports: None Respiratory Surgical History: Reports: None GI Surgical History: Reports: None Male Surgical History: Reports: None Endocrine Surgical History: Reports: None Neurological Surgical History: Reports: None Musculoskeletal Surgical History: Reports: None Dermatological Surgical History: Reports: None Social & Family History - Family History Family Medical History: No Pertinent Family History Cardiac: Reports: CAD, Hypertension, Other (See Below) - Tobacco Use Tobacco Use Status *Q: Never Tobacco User - Caffeine Use Caffeine Use: Reports: Coffee - Recreational Drug Use Recreational Drug Use: No ED ROS GENERAL - Review of Systems Review Of Systems: Comprehensive ROS is negative, except as noted in HPI. ED EXAM, GENERAL - Physical Exam Exam: See Below (see dictation) Course - Vital Signs Last Recorded V/S: Last Vital Signs Temp 97.7 F 10/21/21 09:21 Pulse 84 10/21/21 14:25 Resp 18 10/21/21 14:25 BP 102/66 10/21/21 14:25 Pulse Ox 93 L 10/21/21 14:25 - Orders/Labs/Meds Orders: Active Orders 24 hr Category Date Time Status Saline Lock Insert [OM.PC] Stat Oth 10/21/21 10:05 Ordered Labs: Laboratory Tests 10/21/21 10/21/21 10/21/21 Range/Units 09:31 10:54 10:54 WBC 6.97 (4.0-11.0) K/uL RBC 5.68 (4.50-5.90) M/uL Hgb 16.9 (13.0-17.0) g/dL Hct 47.9 (38.0-50.0) % MCV 84.3 (80.0-98.0) fL MCH 29.8 (27.0-32.0) pg MCHC 35.3 (31.0-37.0) g/dL RDW Std Deviation 41.1 (28.0-62.0) fl RDW Coeff of Tamara 13 (11.0-15.0) % Plt Count 209 (150-400) K/uL MPV 9.80 (7.40-12.00) fL Neut % (Auto) 80.5 H (48.0-80.0) % Lymph % (Auto) 10.2 L (16.0-40.0) % [place] % (Auto) 9.2 (0.0-15.0) % Eos % (Auto) 0.0 (0.0-7.0) % Baso % (Auto) 0.1 (0.0-1.5) % Neut # (Auto) 5.6 (1.4-5.7) K/uL Lymph # (Auto) 0.7 (0.6-2.4) K/uL [place] # (Auto) 0.6 (0.0-0.8) K/uL Eos # (Auto) 0.0 (0.0-0.7) K/uL Baso # (Auto) 0.0 (0.0-0.1) K/uL Nucleated RBC % 0.0 /100WBC Nucleated RBCs # 0 K/uL D-Dimer, Quantitative 1.82 H (0.0-0.50) mg/L FEU Sodium (136-148) mmol/L Potassium (3.5-5.1) mmol/L Chloride (98-107) mmol/L Carbon Dioxide (21.0-32.0) mmol/L BUN (7.0-18.0) mg/dL Creatinine (0.8-1.3) mg/dL Est Cr Clr Drug Dosing mL/min Estimated GFR (MDRD) ml/min Glucose (74-106) mg/dL Calcium (8.5-10.1) mg/dL Total Bilirubin (0.2-1.0) mg/dL AST (15-37) IU/L ALT (14-63) IU/L Alkaline Phosphatase (46-116) U/L Troponin I (0.000-0.056) ng/mL Total Protein (6.4-8.2) g/dL Albumin (3.4-5.0) g/dL Globulin (2.6-4.0) g/dL Albumin/Globulin Ratio (0.9-1.6) Influenza Type A RNA NEGATIVE (NEGATIVE) Influenza Type B RNA NEGATIVE (NEGATIVE) SARS-CoV-2 RNA (RODO) POSITIVE H (NEGATIVE) 10/21/21 Range/Units 10:54 WBC (4.0-11.0) K/uL RBC (4.50-5.90) M/uL Hgb (13.0-17.0) g/dL Hct (38.0-50.0) % MCV (80.0-98.0) fL MCH (27.0-32.0) pg MCHC (31.0-37.0) g/dL RDW Std Deviation (28.0-62.0) fl RDW Coeff of Tamara (11.0-15.0) % Plt Count (150-400) K/uL MPV (7.40-12.00) fL Neut % (Auto) (48.0-80.0) % Lymph % (Auto) (16.0-40.0) % [place] % (Auto) (0.0-15.0) % Eos % (Auto) (0.0-7.0) % Baso % (Auto) (0.0-1.5) % Neut # (Auto) (1.4-5.7) K/uL Lymph # (Auto) (0.6-2.4) K/uL [place] # (Auto) (0.0-0.8) K/uL Eos # (Auto) (0.0-0.7) K/uL Baso # (Auto) (0.0-0.1) K/uL Nucleated RBC % /100WBC Nucleated RBCs # K/uL D-Dimer, Quantitative (0.0-0.50) mg/L FEU Sodium 135 L (136-148) mmol/L Potassium 3.8 (3.5-5.1) mmol/L Chloride 99 (98-107) mmol/L Carbon Dioxide 28.5 (21.0-32.0) mmol/L BUN 21 H (7.0-18.0) mg/dL Creatinine 1.3 (0.8-1.3) mg/dL Est Cr Clr Drug Dosing 61.35 mL/min Estimated GFR (MDRD) 55.2 ml/min Glucose 148 H (74-106) mg/dL Calcium 8.1 L (8.5-10.1) mg/dL Total Bilirubin 1.4 H (0.2-1.0) mg/dL AST 54 H (15-37) IU/L ALT 39 (14-63) IU/L Alkaline Phosphatase 44 L (46-116) U/L Troponin I < 0.050 (0.000-0.056) ng/mL Total Protein 7.4 (6.4-8.2) g/dL Albumin 3.0 L (3.4-5.0) g/dL Globulin 4.4 H (2.6-4.0) g/dL Albumin/Globulin Ratio 0.7 L (0.9-1.6) Influenza Type A RNA (NEGATIVE) Influenza Type B RNA (NEGATIVE) SARS-CoV-2 RNA (RODO) (NEGATIVE) Meds: Medications Discontinued Medications Generic Name Dose Route Start Last Admin Trade Name Freq PRN Reason Stop Dose Admin Sodium Chloride 1,000 mls @ 999 mls/hr 10/21/21 10:36 10/21/21 11:07 Normal Saline IV 10/21/21 11:36 999 mls/hr STAT ONE Administration Iopamidol 100 ml 10/21/21 12:41 10/21/21 12:41 Iopamidol 755 Mg/Ml 500 Ml Multipack Bottle IVPUSH 10/21/21 12:42 100 ml ONETIME STA Administration Metoprolol Succinate 50 mg 10/21/21 11:42 10/21/21 11:49 Metoprolol Succinate 50 Mg Tab.Er PO 10/21/21 11:43 50 mg ONETIME ONE Administration Sodium Chloride 10 ml 10/21/21 10:05 10/21/21 11:06 Sodium Chloride 0.9% 10 Ml Syringe FLUSH 10 ml ASDIRECTED PRN Administration Keep Vein Open Sodium Chloride 2.5 ml 10/21/21 10:05 10/21/21 11:07 Sodium Chloride 0.9% 2.5 Ml Syringe FLUSH 2.5 ml ASDIRECTED PRN Administration Keep Vein Open Departure - Departure Time of Disposition: 13:57 Disposition: Home, Self-Care 01 Clinical Impression: Pneumonia due to COVID-19 virus, Noncompliance with medication regimen Atrial fibrillation Qualifiers: Atrial fibrillation type: paroxysmal Qualified Code(s): I48.0 - Paroxysmal atrial fibrillation - Discharge Information Instructions: 10 Things You Can Do to Manage Your COVID-19 Symptoms at Home - [facility] (05/22/2021) Referrals: PCP,None [Primary Care Provider] - Forms: ED Department Discharge Additional Instructions: The following information is given to patients seen in the emergency department who are being discharged to home. This information is to outline your options for follow-up care. We provide all patients seen in our emergency department with a follow-up referral. The need for follow-up, as well as the timing and circumstances, are variable depending upon the specifics of your emergency department visit. If you don't have a primary care physician on staff, we will provide you with a referral. We always advise you to contact your personal physician following an emergency department visit to inform them of the circumstance of the visit and for follow-up with them and/or the need for any referrals to a consulting specialist. The emergency department will also refer you to a specialist when appropriate. This referral assures that you have the opportunity for follow-up care with a specialist. All of these measure are taken in an effort to provide you with optimal care, which includes your follow-up. Under all circumstances we always encourage you to contact your private physician who remains a resource for coordinating your care. When calling for follow-up care, please make the office aware that this follow-up is from your recent emergency room visit. If for any reason you are refused follow-up, please contact the [facility] Emergency Department at and asked to speak to the emergency department charge nurse. [facility] [address] [place] [address] [facility] [address] [place] [id number] 1. Your COVID-19 screening is positive. That means you do have the coronavirus and are considered contagious. Your vital signs and oxygen saturation are well enough that you were able to monitor your symptoms at home. Continue to monitor for trouble breathing, new confusion or inability to arouse, bluish lips or face or any of the other symptoms we discussed -if this occurs please return to the emergency room.Continue to monitor your health at home for worsening symptoms so that you can be taken care of and treated quickly if needed. 2. Please self quarantine until 10 days have passed since your symptoms began AND you are fever free (<100.4 degrees fahrenheit) for 24 hours without the use of fever-reducing medications AND symptoms are improving. You should restrict activities outside of your home, except for getting medical care. Do not go to work, school, or public areas. Avoid using public transportation, ride-sharing, or taxis. Inform any persons that you have been in contact with since you started becoming symptomatic that you have tested positive; they should be made aware and take the appropriate steps as needed. 3. You may alternate Tylenol and ibuprofen as needed for pain and fever management. 4. The [facility] department will be calling you and following up with you. The [place] COVID 19 Hotline phone number , They are open Tuesday - Tuesday 7am - 7pm. Follow up with your primary care provider for re-evaluation and re-testing after quarantine and discuss when you should be seen. 6. For more specific guidelines regarding isolation/quarantine please visit this website. https://www.health.[place].gov/sites/www/files/docum ents/Files/GEOVANNY/coronavirus/Factsheet_for_People_With_COVID-19.pdf 7. Start your home medications as prescribed to you as discussed including metoprolol. Sepsis Event Note (ED) - Evaluation Sepsis Screening Result: No Definite Risk - Focused Exam Vital Signs: Vital Signs Temp Pulse Pulse Resp BP BP Pulse Ox 10/21/21 14:25 84 18 102/66 93 L 10/21/21 11:49 104 H 117/66 10/21/21 11:10 87 16 112/65 93 L 10/21/21 09:21 97.7 F 76 18 98/56 L 91 L - My Orders Last 24 Hours: My Active Orders 10/21/21 10:05 Saline Lock Insert [OM.PC] Stat - Assessment/Plan Last 24 Hours: My Active Orders 10/21/21 10:05 Saline Lock Insert [OM.PC] Stat
--- NOTE | 2021-10-21 11:29 | CR ---
INDICATION: Chest pain TECHNIQUE: Chest 1 view. COMPARISON: 02/22/2017 FINDINGS: Cardiovascular and mediastinum: Heart size and vasculature are normal in caliber and appearance. Mediastinum is within normal limits. Lungs and pleural space: Bilateral patchy pulmonary infiltrates. No sign of pleural effusion. No pneumothorax. Bones and soft tissues: No significant findings. Remote healed left mid rib fractures. IMPRESSION: Bilateral patchy pulmonary infiltrates. Dictated by Emiliano Hanna MD @ 10/21/2021 11:27:54 AM (Electronically Signed)
[2021-10-21 11:42] LABS: BLOOD UREA NITROGEN,BUN 21 mg/dL (7.0-18.0); CARBON DIOXIDE,CO2 28.5 mmol/L (21.0-32.0); CHLORIDE,CL 99 mmol/L (98-107); GLUCOSE RANDOM 148 mg/dL (74-106); POTASSIUM,K 3.8 mmol/L (3.5-5.1); SODIUM,NA 135 mmol/L (136-148)
[2021-10-21] MEDS ORDERED: Metoprolol Succinate 50 MG Tab.ER PO ONE (11:42)
--- NOTE | 2021-10-21 11:46 | PCM.EKG ---
#1 Interpretation Time: 11:34 EKG Interpretation Comments: 114, atrial fibrillation with multifocal PVCs. Nonspecific ST/T findings
[2021-10-21] MEDS ORDERED: Iopamidol 755 MG/ML 500 ML Multipack Bottle IVPUSH STA (12:41)
--- NOTE | 2021-10-21 13:13 | CT ---
INDICATION: COVID positive Suspected pulmonary embolus TECHNIQUE : CT scan of the chest. CTA PE protocol. IV contrast. 100 cc Isovue 370 FINDINGS: Pulmonary arteries: No pulmonary artery filling defects. Heart/mediastinum: Unremarkable aorta No adenopathy No pericardial fluid. Aorta: Normal calibre. Lungs and pleura: Multifocal patchy peripheral ground-glass alveolar opacities. Bilateral upper and lower lobe distribution. No pleural fluid or pneumothorax. Abdomen/skeletal:No significant skeletal abnormality A few well-marginated rounded low-dense lesions in the liver are likely cysts. IMPRESSION: 1. No signs for acute pulmonary embolus. 2. Multifocal pulmonary opacities with radiographic pattern compatible with COVID-19 infection. Please note that all CT scans at this facility use dose modulation, iterative reconstruction, and/or weight-based dosing when appropriate to reduce radiation dose to as low as reasonably achievable. Dictated by Kane Billings MD @ 10/21/2021 1:11:47 PM (Electronically Signed)
[2021-10-21 14:26] VITALS: BP 102/66; PULSE 84
== END 2021-10-21 14:27 | disposition home or self-care (01) ==
LOC: MW.ED 08:49
DX: U07.1 COVID-19 (principal); J12.82 Pneumonia due to coronavirus disease 2019; I48.0 Paroxysmal atrial fibrillation; I10 Essential (primary) hypertension; Z91.19 Patient's noncompliance with other medical treatment and regimen; Z91.018 Allergy to other foods; Z79.82 Long term (current) use of aspirin
CPT/HCPCS: 0240U; 71045; 71275; 80053; 84484; 85025; 85379; 93005; 99285; A9270; J7030; Q9967

== ENCOUNTER 2021-10-23 10:07 | Observation (INO) | payer BC ==
[2021-10-23] MEDS ORDERED: Sodium Chloride 0.9% 2.5 ML Syringe FLUSH PRN (10:33)
[2021-10-23] MEDS ORDERED: Sodium Chloride 0.9% 10 ML Syringe FLUSH PRN (10:33)
[2021-10-23] MEDS ORDERED: Sodium Chloride 0.9% 1,000 ML IV ONE (10:38)
[2021-10-23] MEDS ORDERED: Ondansetron 4 MG/2 ML SDV IVPUSH ONE (10:38)
--- NOTE | 2021-10-23 10:40 | EDM.PDOC ---
ED HPI GENERAL MEDICAL PROBLEM - General Chief Complaint: Respiratory Problem Stated Complaint: COVID POSITIVE Time Seen by Provider: 10/23/21 10:09 Source of Information: Reports: Patient History Limitations: Reports: No Limitations - History of Present Illness INITIAL COMMENTS - FREE TEXT/NARRATIVE: HISTORY AND PHYSICAL: History of present illness: The patient is a 65-year-old male with a history of hypertension and atrial fibrillation, COVID 19+ diagnosed 10/21/2021 in this emergency department. The patient was treated with IV fluids and given his home dose of metoprolol. The patient had been off metoprolol for over 2 weeks, as his dentist had told him that a homeopathic treatment could be better. The patient has been taking his metoprolol since his ED visit on 10/21/2021. The patient has been monitoring his oxygen donation saturation at home and reports that its been hovering between 87 and 88% after ambulation. He reports shortness of breath with exertion. The patient states that he has been unable to eat or really drink due to nausea. The patient states that he just is feeling very rundown and his dizziness is increasing. The patient's reports that the patient seems more unsteady on his feet as she feels he is just getting weaker and weaker. Patient denies any headache, change in vision, syncope or near syncope. Denies any chest pain, back pain, shortness of breath or cough. Denies any abdominal pain, vomiting, constipation or dysuria. Has not noted any blood in urine or stool. The patient has not been vaccinated for COVID-19. Review of systems: As per history of present illness and below otherwise all systems reviewed and negative. Past medical history: As per history of present illness and as reviewed below otherwise nonc ontributory. Surgical history: As per history of present illness and as reviewed below otherwise noncontributory. Social history: See social history for further information Family history: As per history of present illness and as reviewed below otherwise noncontributory. Physical exam: General: Well developed and well nourished. Alert and orientated x 3. Nontoxic in appearance and in no acute distress. Vital signs are stable and have been reviewed by me. Nursing notes were reviewed. HEENT: Atraumatic, normocephalic, pupils equal and reactive bilaterally, negative for conjunctival pallor or scleral icterus, mucous membranes moist, TMs normal bilaterally, throat clear, neck supple, nontender, trachea midline. No drooling or trismus noted. No meningeal signs. No hot potato voice noted. Lungs: Clear to auscultation bilaterally. No wheezes, rales, or rhonchi. Chest nontender. Normal work of breathing, no accessory muscles used. Heart: S1S2, regular irregular and rhythm without overt murmur, gallops, or rubs. No JVD. No peripheral edema Abdomen: Soft, nondistended, nontender. Normoactive bowel sounds. Negative for masses or costovertebral tenderness. Skin: Intact, warm, dry. No lesions or rashes noted. Hematologic: No petechiae or purpra. Mucosa appropriate color and normal nail bed color and refill. Extremities: Atraumatic, moves all extremities per self without difficulty or deficits, negative for cords or calf pain. Neurovascular unremarkable. Neuro: Awake, alert, oriented. Cranial nerves II through XII unremarkable. Cerebellum unremarkable. Motor and sensory unremarkable throughout. Exam nonfocal. Psychiatric: Mood and affect are appropriate. Normal thought process. Answering questions appropriately. Notes: *This patient was seen and evaluated during the 2019 SARS-CoV-2 novel coronavirus pandemic period. Community viral transmission is ongoing at time of this encounter and the emergency department is operating under pandemic response procedures. As stated above the patient is a 65-year-old male with a history of hypertension and atrial fibrillation who was diagnosed with COVID-19 on 10/21/2021 presents for increased weakness, increased shortness of breath with exertion, and inability to. The patient started back on metoprolol after being off of it for an extended amount of time for his atrial fibrillation. Originally reported on the 10/21/2021 visit the patient has been off his metoprolol for 2 weeks, however the has reported that it was approximately 2 to 3 months. The patient's heart rate is variable between upper 80s and 102. The patient does have a slight tremor reported after having his blood drawn in the right upper shoulder area. The patient is able to answer my questions but the does state that he might have some confusion. The patient did not argue this but just looked at his . I have ordered orthostatic vital signs, blood work, and a repeat chest x-ray. I will treat the patient with IV fluids and Zofran. The patient is agreeable with this plan. The CBC is unremarkable. The CMP is remarkable for a BUN of 19, glucose 128, calcium 7.5, total bilirubin 1.5, AST 61, total protein 5.6. The patient's urine is significant for large amount of occult blood, large amount of protein, and small amount of bilirubin and urobilinogen 4.0. Chest x-ray IMPRESSION: Stable bilateral patchy pulmonary opacities compatible with COVID pneumonia. I spoke with the hospitalist Dr. Lozano regarding admission. All the patient is not hypoxic and is running 94% on room air he has failed outpatient Covid and as he is unable to keep fluids and or eat. Dr. Lozano has agreed to observation status for the patient. Upon telling the patient and his about the observation status the patient stated that he did not want to be intubated nor did he want remdesivir. Diagnostics: CBC, CMP, chest x-ray 1 view, [employer]: Fluids, Zofran Impression: Failure to thrive due to COVID-19 Definitive disposition and diagnosis as appropriate pending reevaluation and review of above. - Related Data Allergies Allergy/AdvReac Type Severity Reaction Status Date / Time kiwi Allergy Numbness Verified 10/23/21 17:45 Home Meds: Home Meds Aspirin 81 mg PO DAILY #30 tab.chew 02/23/17 [Rx] Metoprolol Succinate 50 mg PO DAILY #30 tab.er.24h 02/23/17 [Rx] Past Medical History HEENT History: Reports: None Cardiovascular History: Reports: Hypertension Respiratory History: Reports: None Gastrointestinal History: Reports: None Genitourinary History: Reports: None Musculoskeletal History: Reports: None Neurological History: Reports: None Psychiatric History: Reports: None Endocrine/Metabolic History: Reports: None Hematologic History: Reports: None Immunologic History: Reports: None Oncologic (Cancer) History: Reports: None Dermatologic History: Reports: None - Infectious Disease History Infectious Disease History: Reports: Chicken Pox, Extended Spectrum Beta- Lactamase (ESBL), Measles - Past Surgical History Head Surgeries/Procedures: Reports: None HEENT Surgical History: Reports: None Cardiovascular Surgical History: Reports: None Respiratory Surgical History: Reports: None GI Surgical History: Reports: None Male Surgical History: Reports: None Endocrine Surgical History: Reports: None Neurological Surgical History: Reports: None Musculoskeletal Surgical History: Reports: None Dermatological Surgical History: Reports: None Social & Family History - Family History Family Medical History: No Pertinent Family History Cardiac: Reports: CAD, Hypertension, Other (See Below) - Tobacco Use Tobacco Use Status *Q: Never Tobacco User - Caffeine Use Caffeine Use: Reports: Coffee - Alcohol Use Days Per Week of Alcohol Use: 1 Number of Drinks Per Day: 1 Total Drinks Per Week: 1 - Recreational Drug Use Recreational Drug Use: No ED ROS GENERAL - Review of Systems Review Of Systems: Comprehensive ROS is negative, except as noted in HPI. ED EXAM, GENERAL - Physical Exam Exam: See Below (See dictation) Course - Vital Signs Last Recorded V/S: Last Vital Signs Temp 99.3 F 10/23/21 10:17 Pulse 97 10/23/21 15:41 Resp 20 10/23/21 15:41 BP 127/82 10/23/21 15:41 Pulse Ox 94 L 10/23/21 15:41 Orthostatic Blood Pressure [ 117/75 Standing] Orthostatic Blood Pressure [ 125/85 Supine] - Orders/Labs/Meds Orders: Active Orders 24 hr Category Date Time Status Sodium Chloride 0.9% [Saline Flush] Med 10/23/21 10:33 Active 10 ml FLUSH ASDIRECTED PRN Sodium Chloride 0.9% [Saline Flush] Med 10/23/21 10:33 Active 2.5 ml FLUSH ASDIRECTED PRN Saline Lock Insert [OM.PC] Stat Oth 10/23/21 10:34 Ordered Medication Orders Enoxaparin Sodium (Enoxaparin 40 Mg/0.4 Ml Syringe) 40 mg SUBCUT Q24H MOSES Metoprolol Succinate (Metoprolol Succinate 50 Mg Tab.Er) 50 mg PO DAILY MOSES Ondansetron HCl (Ondansetron 4 Mg Tab.Dis) 4 mg PO Q4H PRN PRN Reason: nausea, able to take PO Sodium Chloride (Sodium Chloride 0.9% 10 Ml Syringe) 10 ml FLUSH ASDIRECTED PRN PRN Reason: Keep Vein Open Last Admin: 10/23/21 10:58 Dose: 10 ml Documented by: VAISHALI Sodium Chloride (Sodium Chloride 0.9% 2.5 Ml Syringe) 2.5 ml FLUSH ASDIRECTED PRN PRN Reason: Keep Vein Open Last Admin: 10/23/21 10:58 Dose: 2.5 ml Documented by: VAISHALI Labs: Laboratory Tests 10/23/21 10/23/21 10/23/21 Range/Units 11:11 11:57 11:57 WBC 6.02 (4.0-11.0) K/uL RBC 5.65 (4.50-5.90) M/uL Hgb 16.8 (13.0-17.0) g/dL Hct 48.0 (38.0-50.0) % MCV 85.0 (80.0-98.0) fL MCH 29.7 (27.0-32.0) pg MCHC 35.0 (31.0-37.0) g/dL RDW Std Deviation 41.0 (28.0-62.0) fl RDW Coeff of Tamara 13 (11.0-15.0) % Plt Count 224 (150-400) K/uL MPV 10.40 (7.40-12.00) fL Neut % (Auto) 80.2 H (48.0-80.0) % Lymph % (Auto) 12.6 L (16.0-40.0) % [place] % (Auto) 7.0 (0.0-15.0) % Eos % (Auto) 0.0 (0.0-7.0) % Baso % (Auto) 0.2 (0.0-1.5) % Neut # (Auto) 4.8 (1.4-5.7) K/uL Lymph # (Auto) 0.8 (0.6-2.4) K/uL [place] # (Auto) 0.4 (0.0-0.8) K/uL Eos # (Auto) 0.0 (0.0-0.7) K/uL Baso # (Auto) 0.0 (0.0-0.1) K/uL Nucleated RBC % 0.0 /100WBC Nucleated RBCs # 0 K/uL INR APTT (18.6-31.3) SEC Sodium 137 (136-148) mmol/L Potassium 3.7 (3.5-5.1) mmol/L Chloride 101 (98-107) mmol/L Carbon Dioxide 26.7 (21.0-32.0) mmol/L BUN 19 H (7.0-18.0) mg/dL Creatinine 1.1 (0.8-1.3) mg/dL Est Cr Clr Drug Dosing 72.51 mL/min Estimated GFR (MDRD) > 60.0 ml/min Glucose 128 H (74-106) mg/dL Calcium 7.5 L (8.5-10.1) mg/dL Magnesium 2.1 (1.8-2.4) mg/dL Total Bilirubin 1.5 H (0.2-1.0) mg/dL AST 61 H (15-37) IU/L ALT 30 (14-63) IU/L Alkaline Phosphatase 34 L (46-116) U/L Troponin I < 0.050 (0.000-0.056) ng/mL Total Protein 5.6 L (6.4-8.2) g/dL Albumin 2.2 L (3.4-5.0) g/dL Globulin 3.4 (2.6-4.0) g/dL Albumin/Globulin Ratio 0.7 L (0.9-1.6) Urine Color Urine Appearance Urine pH (5.0-8.0) Ur Specific [place] (1.001-1.035) Urine Protein (NEGATIVE) mg/dL Urine Glucose (UA) (NEGATIVE) mg/dL Urine Ketones (NEGATIVE) mg/dL Urine Occult Blood (NEGATIVE) Urine Nitrite (NEGATIVE) Urine Bilirubin (NEGATIVE) Urine Urobilinogen (<2.0) EU/dL Ur Leukocyte Esterase (NEGATIVE) Urine RBC (0-2/HPF) Urine WBC (0-5/HPF) Ur Epithelial Cells (NONE-FEW) Urine Bacteria (NEGATIVE) Coarse Granular Casts (NEGATIVE) WBC Casts (NEGATIVE) Urine Mucus (NONE-MOD) 10/23/21 10/23/21 Range/Units 11:57 12:38 WBC (4.0-11.0) K/uL RBC (4.50-5.90) M/uL Hgb (13.0-17.0) g/dL Hct (38.0-50.0) % MCV (80.0-98.0) fL MCH (27.0-32.0) pg MCHC (31.0-37.0) g/dL RDW Std Deviation (28.0-62.0) fl RDW Coeff of Tamara (11.0-15.0) % Plt Count (150-400) K/uL MPV (7.40-12.00) fL Neut % (Auto) (48.0-80.0) % Lymph % (Auto) (16.0-40.0) % [place] % (Auto) (0.0-15.0) % Eos % (Auto) (0.0-7.0) % Baso % (Auto) (0.0-1.5) % Neut # (Auto) (1.4-5.7) K/uL Lymph # (Auto) (0.6-2.4) K/uL [place] # (Auto) (0.0-0.8) K/uL Eos # (Auto) (0.0-0.7) K/uL Baso # (Auto) (0.0-0.1) K/uL Nucleated RBC % /100WBC Nucleated RBCs # K/uL INR 1.17 APTT 28.1 (18.6-31.3) SEC Sodium (136-148) mmol/L Potassium (3.5-5.1) mmol/L Chloride (98-107) mmol/L Carbon Dioxide (21.0-32.0) mmol/L BUN (7.0-18.0) mg/dL Creatinine (0.8-1.3) mg/dL Est Cr Clr Drug Dosing mL/min Estimated GFR (MDRD) ml/min Glucose (74-106) mg/dL Calcium (8.5-10.1) mg/dL Magnesium (1.8-2.4) mg/dL Total Bilirubin (0.2-1.0) mg/dL AST (15-37) IU/L ALT (14-63) IU/L Alkaline Phosphatase (46-116) U/L Troponin I (0.000-0.056) ng/mL Total Protein (6.4-8.2) g/dL Albumin (3.4-5.0) g/dL Globulin (2.6-4.0) g/dL Albumin/Globulin Ratio (0.9-1.6) Urine Color DARK YELLOW Urine Appearance CLEAR Urine pH 6.0 (5.0-8.0) Ur Specific [place] >= 1.030 (1.001-1.035) Urine Protein >=300 H (NEGATIVE) mg/dL Urine Glucose (UA) NEGATIVE (NEGATIVE) mg/dL Urine Ketones NEGATIVE (NEGATIVE) mg/dL Urine Occult Blood LARGE H (NEGATIVE) Urine Nitrite NEGATIVE (NEGATIVE) Urine Bilirubin SMALL H (NEGATIVE) Urine Urobilinogen 4.0 H (<2.0) EU/dL Ur Leukocyte Esterase NEGATIVE (NEGATIVE) Urine RBC 0-2 (0-2/HPF) Urine WBC 0-2 (0-5/HPF) Ur Epithelial Cells RARE (NONE-FEW) Urine Bacteria FEW (NEGATIVE) Coarse Granular Casts 2-5 (NEGATIVE) WBC Casts 0-2 (NEGATIVE) Urine Mucus LIGHT (NONE-MOD) Meds: Medications Generic Name Dose Route Start Last Admin Trade Name Freq PRN Reason Stop Dose Admin Enoxaparin Sodium 40 mg 10/23/21 15:45 Enoxaparin 40 Mg/0.4 Ml Syringe SUBCUT Q24H MOSES Metoprolol Succinate 50 mg 10/24/21 09:00 Metoprolol Succinate 50 Mg Tab.Er PO DAILY MOSES Ondansetron HCl 4 mg 10/23/21 15:41 Ondansetron 4 Mg Tab.Dis PO Q4H PRN nausea, able to take PO Sodium Chloride 10 ml 10/23/21 10:33 10/23/21 10:58 Sodium Chloride 0.9% 10 Ml Syringe FLUSH 10 ml ASDIRECTED PRN Administration Keep Vein Open Sodium Chloride 2.5 ml 10/23/21 10:33 10/23/21 10:58 Sodium Chloride 0.9% 2.5 Ml Syringe FLUSH 2.5 ml ASDIRECTED PRN Administration Keep Vein Open Discontinued Medications Generic Name Dose Route Start Last Admin Trade Name Freq PRN Reason Stop Dose Admin Sodium Chloride 1,000 mls @ 999 mls/hr 10/23/21 10:38 10/23/21 11:03 Normal Saline IV 10/23/21 11:38 999 mls/hr .BOLUS ONE Administration Ondansetron HCl 4 mg 10/23/21 10:38 10/23/21 10:58 Ondansetron 4 Mg/2 Ml Sdv IVPUSH 10/23/21 10:39 4 mg ONETIME ONE Administration Departure - Departure Time of Disposition: 14:46 Disposition: Refer to Observation Condition: Fair Clinical Impression: Failure to thrive in adult, COVID-19 - Discharge Information Sepsis Event Note (ED) - Evaluation Sepsis Screening Result: No Definite Risk - Focused Exam Vital Signs: Vital Signs Temp Pulse Resp BP Pulse Ox 10/23/21 13:08 97 127/82 10/23/21 10:17 99.3 F 78 16 129/85 94 L - My Orders Last 24 Hours: My Active Orders 10/23/21 10:33 Sodium Chloride 0.9% [Saline Flush] 10 ml FLUSH ASDIRECTED PRN Sodium Chloride 0.9% [Saline Flush] 2.5 ml FLUSH ASDIRECTED PRN 10/23/21 10:34 Saline Lock Insert [OM.PC] Stat - Assessment/Plan Last 24 Hours: My Active Orders 10/23/21 10:33 Sodium Chloride 0.9% [Saline Flush] 10 ml FLUSH ASDIRECTED PRN Sodium Chloride 0.9% [Saline Flush] 2.5 ml FLUSH ASDIRECTED PRN 10/23/21 10:34 Saline Lock Insert [OM.PC] Stat
--- NOTE | 2021-10-23 12:03 | CR ---
INDICATION: COVID positive. TECHNIQUE: Chest 1 view. COMPARISON: Chest radiograph 10/21/2021. FINDINGS: There are patchy opacities in the lungs bilaterally similar to prior exam. No pleural effusion or pneumothorax. Normal heart size and pulmonary vascularity. Old left rib fractures. IMPRESSION: Stable bilateral patchy pulmonary opacities compatible with COVID pneumonia. Dictated by Rashmi Valera MD @ 10/23/2021 12:02:59 PM (Electronically Signed)
[2021-10-23 12:39] LABS: BLOOD UREA NITROGEN,BUN 19 mg/dL (7.0-18.0); CARBON DIOXIDE,CO2 26.7 mmol/L (21.0-32.0); CHLORIDE,CL 101 mmol/L (98-107); GLUCOSE RANDOM 128 mg/dL (74-106); POTASSIUM,K 3.7 mmol/L (3.5-5.1); SODIUM,NA 137 mmol/L (136-148)
--- NOTE | 2021-10-23 13:08 | PCM.EKG ---
#1 Interpretation EKG Date: 10/23/21 Time: 11:25 EKG Interpretation Comments: Atrial fibrillation ventricular rate of 104 incomplete right bundle isolated PVC no acute ischemia
[2021-10-23] MEDS ORDERED: Ondansetron 4 MG Tab.DIS PO PRN (15:41)
[2021-10-23] MEDS ORDERED: Enoxaparin 40 MG/0.4 ML Syringe SUBCUT SCH (15:45)
--- NOTE | 2021-10-23 15:47 | PCM.HP.2 ---
H&P History of Present Illness - General Date of Service: 10/23/21 Admit Problem/Dx: Admission Diagnosis/Problem Admission Diagnosis/Problem Failure to thrive - History of Present Illness Initial Comments - Free Text/Narative: 65 yo male with pmh of atrial fibrillation who presents with two week history of diarrhea, nausea and vomiting. Patient reports lost of smell and not able tolerate the taste of food. Patient has had cough and shortness of breath. He tested psotive for COVID two days ago. CXR reports patchy bilateral opacities consistent with pneumonia. Patient is satting 94% on room air. He has limited mobility due to his fatigue. - Related Data Allergies/Adverse Reactions: Allergies Allergy/AdvReac Type Severity Reaction Status Date / Time juliwi Allergy Numbness Verified 10/23/21 17:45 Home Medications: Home Meds Aspirin 81 mg PO DAILY #30 tab.chew 02/23/17 [Rx] Metoprolol Succinate 50 mg PO DAILY #30 tab.er.24h 02/23/17 [Rx] Past Medical History HEENT History: Reports: None Cardiovascular History: Reports: Hypertension Respiratory History: Reports: None Gastrointestinal History: Reports: None Genitourinary History: Reports: None Musculoskeletal History: Reports: None Neurological History: Reports: None Psychiatric History: Reports: None Endocrine/Metabolic History: Reports: None Hematologic History: Reports: None Immunologic History: Reports: None Oncologic (Cancer) History: Reports: None Dermatologic History: Reports: None - Infectious Disease History Infectious Disease History: Reports: Chicken Pox, Extended Spectrum Beta- Lactamase (ESBL), Measles - Past Surgical History Head Surgeries/Procedures: Reports: None HEENT Surgical History: Reports: None Cardiovascular Surgical History: Reports: None Respiratory Surgical History: Reports: None GI Surgical History: Reports: None Male Surgical History: Reports: None Endocrine Surgical History: Reports: None Neurological Surgical History: Reports: None Musculoskeletal Surgical History: Reports: None Dermatological Surgical History: Reports: None Social & Family History - Family History Family Medical History: No Pertinent Family History Cardiac: Reports: CAD, Hypertension, Other (See Below) - Tobacco Use Tobacco Use Status *Q: Never Tobacco User - Caffeine Use Caffeine Use: Reports: Coffee - Alcohol Use Days Per Week of Alcohol Use: 1 Number of Drinks Per Day: 1 Total Drinks Per Week: 1 - Recreational Drug Use Recreational Drug Use: No H&P Review of Systems - Review of Systems: Review Of Systems: Comprehensive ROS is negative, except as noted in HPI. Exam - Exam Exam: See Below - Vital Signs Vital Signs: Last Vital Signs Temp 37.4 C 10/23/21 10:17 Pulse 97 10/23/21 13:08 Resp 16 10/23/21 10:17 BP 127/82 10/23/21 13:08 Pulse Ox 94 L 10/23/21 10:17 Orthostatic Blood Pressure [ 117/75 Standing] Orthostatic Blood Pressure [ 125/85 Supine] Weight: 90.718 kg - Exam General: Alert, Oriented Lungs: Clear to Auscultation, Normal Respiratory Effort Cardiovascular: Regular Rate, Regular Rhythm GI/Abdominal Exam: Normal Bowel Sounds, Soft, Non-Tender Extremities: Non-Tender, No Pedal Edema Skin: Warm, Dry, Intact Neurological: Cranial Nerves Intact. No: Focal Deficit - Patient Data Lab Results Last 24 hrs: Laboratory Results - last 24 hr 10/23/21 10/23/21 10/23/21 Range/Units 11:11 11:57 11:57 WBC 6.02 (4.0-11.0) K/uL RBC 5.65 (4.50-5.90) M/uL Hgb 16.8 (13.0-17.0) g/dL Hct 48.0 (38.0-50.0) % MCV 85.0 (80.0-98.0) fL MCH 29.7 (27.0-32.0) pg MCHC 35.0 (31.0-37.0) g/dL RDW Std Deviation 41.0 (28.0-62.0) fl RDW Coeff of Tamara 13 (11.0-15.0) % Plt Count 224 (150-400) K/uL MPV 10.40 (7.40-12.00) fL Neut % (Auto) 80.2 H (48.0-80.0) % Lymph % (Auto) 12.6 L (16.0-40.0) % [place] % (Auto) 7.0 (0.0-15.0) % Eos % (Auto) 0.0 (0.0-7.0) % Baso % (Auto) 0.2 (0.0-1.5) % Neut # (Auto) 4.8 (1.4-5.7) K/uL Lymph # (Auto) 0.8 (0.6-2.4) K/uL [place] # (Auto) 0.4 (0.0-0.8) K/uL Eos # (Auto) 0.0 (0.0-0.7) K/uL Baso # (Auto) 0.0 (0.0-0.1) K/uL Nucleated RBC % 0.0 /100WBC Nucleated RBCs # 0 K/uL INR APTT (18.6-31.3) SEC Sodium 137 (136-148) mmol/L Potassium 3.7 (3.5-5.1) mmol/L Chloride 101 (98-107) mmol/L Carbon Dioxide 26.7 (21.0-32.0) mmol/L BUN 19 H (7.0-18.0) mg/dL Creatinine 1.1 (0.8-1.3) mg/dL Est Cr Clr Drug Dosing 72.51 mL/min Estimated GFR (MDRD) > 60.0 ml/min Glucose 128 H (74-106) mg/dL Calcium 7.5 L (8.5-10.1) mg/dL Magnesium 2.1 (1.8-2.4) mg/dL Total Bilirubin 1.5 H (0.2-1.0) mg/dL AST 61 H (15-37) IU/L ALT 30 (14-63) IU/L Alkaline Phosphatase 34 L (46-116) U/L Troponin I < 0.050 (0.000-0.056) ng/mL Total Protein 5.6 L (6.4-8.2) g/dL Albumin 2.2 L (3.4-5.0) g/dL Globulin 3.4 (2.6-4.0) g/dL Albumin/Globulin Ratio 0.7 L (0.9-1.6) Urine Color Urine Appearance Urine pH (5.0-8.0) Ur Specific [place] (1.001-1.035) Urine Protein (NEGATIVE) mg/dL Urine Glucose (UA) (NEGATIVE) mg/dL Urine Ketones (NEGATIVE) mg/dL Urine Occult Blood (NEGATIVE) Urine Nitrite (NEGATIVE) Urine Bilirubin (NEGATIVE) Urine Urobilinogen (<2.0) EU/dL Ur Leukocyte Esterase (NEGATIVE) Urine RBC (0-2/HPF) Urine WBC (0-5/HPF) Ur Epithelial Cells (NONE-FEW) Urine Bacteria (NEGATIVE) Coarse Granular Casts (NEGATIVE) WBC Casts (NEGATIVE) Urine Mucus (NONE-MOD) 10/23/21 10/23/21 Range/Units 11:57 12:38 WBC (4.0-11.0) K/uL RBC (4.50-5.90) M/uL Hgb (13.0-17.0) g/dL Hct (38.0-50.0) % MCV (80.0-98.0) fL MCH (27.0-32.0) pg MCHC (31.0-37.0) g/dL RDW Std Deviation (28.0-62.0) fl RDW Coeff of Tamara (11.0-15.0) % Plt Count (150-400) K/uL MPV (7.40-12.00) fL Neut % (Auto) (48.0-80.0) % Lymph % (Auto) (16.0-40.0) % [place] % (Auto) (0.0-15.0) % Eos % (Auto) (0.0-7.0) % Baso % (Auto) (0.0-1.5) % Neut # (Auto) (1.4-5.7) K/uL Lymph # (Auto) (0.6-2.4) K/uL [place] # (Auto) (0.0-0.8) K/uL Eos # (Auto) (0.0-0.7) K/uL Baso # (Auto) (0.0-0.1) K/uL Nucleated RBC % /100WBC Nucleated RBCs # K/uL INR 1.17 APTT 28.1 (18.6-31.3) SEC Sodium (136-148) mmol/L Potassium (3.5-5.1) mmol/L Chloride (98-107) mmol/L Carbon Dioxide (21.0-32.0) mmol/L BUN (7.0-18.0) mg/dL Creatinine (0.8-1.3) mg/dL Est Cr Clr Drug Dosing mL/min Estimated GFR (MDRD) ml/min Glucose (74-106) mg/dL Calcium (8.5-10.1) mg/dL Magnesium (1.8-2.4) mg/dL Total Bilirubin (0.2-1.0) mg/dL AST (15-37) IU/L ALT (14-63) IU/L Alkaline Phosphatase (46-116) U/L Troponin I (0.000-0.056) ng/mL Total Protein (6.4-8.2) g/dL Albumin (3.4-5.0) g/dL Globulin (2.6-4.0) g/dL Albumin/Globulin Ratio (0.9-1.6) Urine Color DARK YELLOW Urine Appearance CLEAR Urine pH 6.0 (5.0-8.0) Ur Specific [place] >= 1.030 (1.001-1.035) Urine Protein >=300 H (NEGATIVE) mg/dL Urine Glucose (UA) NEGATIVE (NEGATIVE) mg/dL Urine Ketones NEGATIVE (NEGATIVE) mg/dL Urine Occult Blood LARGE H (NEGATIVE) Urine Nitrite NEGATIVE (NEGATIVE) Urine Bilirubin SMALL H (NEGATIVE) Urine Urobilinogen 4.0 H (<2.0) EU/dL Ur Leukocyte Esterase NEGATIVE (NEGATIVE) Urine RBC 0-2 (0-2/HPF) Urine WBC 0-2 (0-5/HPF) Ur Epithelial Cells RARE (NONE-FEW) Urine Bacteria FEW (NEGATIVE) Coarse Granular Casts 2-5 (NEGATIVE) WBC Casts 0-2 (NEGATIVE) Urine Mucus LIGHT (NONE-MOD) Result Diagrams: 10/24/21 07:34 10/24/21 07:34 Sepsis Event Note - Evaluation Sepsis Screening Result: No Definite Risk - Focused Exam Vital Signs: Vital Signs Temp Pulse Resp BP Pulse Ox 10/23/21 13:08 97 127/82 10/23/21 10:17 37.4 C 78 16 129/85 94 L - Problem List (1) Failure to thrive in adult SNOMED Code(s): 585704817 ICD Code: R62.7 - ADULT FAILURE TO THRIVE Status: Acute Current Visit: Yes (2) COVID-19 SNOMED Code(s): 755231968 ICD Code: U07.1 - COVID-19 Status: Acute Current Visit: Yes Problem List Initiated/Reviewed/Updated: Yes Orders Last 24hrs: Active Orders 24 hr Category Date Time Status Admission Status [Patient Status] [ADT] Stat ADT 10/23/21 14:33 Active Oxygen Therapy [RC] PRN Care 10/23/21 15:41 Ordered VTE/DVT Education [RC] PER UNIT ROUTINE Care 10/23/21 15:41 Ordered Vital Signs [RC] Q4H Care 10/23/21 15:41 Ordered PT Evaluation and Treatment [CONS] Routine Cons 10/23/21 15:41 Ordered Regular Diet [DIET] Diet 10/23/21 Breakfast Ordered CBC WITH AUTO DIFF [HEME] AM Lab 10/24/21 05:11 Ordered COMPREHENSIVE METABOLIC PN,CMP [CHEM] AM Lab 10/24/21 05:11 Ordered Enoxaparin [Lovenox] Med 10/23/21 15:45 Ordered 40 mg SUBCUT Q24H Metoprolol Succinate [Toprol XL] Med 10/24/21 09:00 Ordered 50 mg PO DAILY Ondansetron [Zofran ODT] Med 10/23/21 15:41 Ordered 4 mg PO Q4H PRN Sodium Chloride 0.9% [Saline Flush] Med 10/23/21 10:33 Active 10 ml FLUSH ASDIRECTED PRN Sodium Chloride 0.9% [Saline Flush] Med 10/23/21 10:33 Active 2.5 ml FLUSH ASDIRECTED PRN Saline Lock Insert [OM.PC] Stat Oth 10/23/21 10:34 Ordered Code Status [Resuscitation Status] Stat Resus Stat 10/23/21 14:44 Ordered Medication Orders Enoxaparin Sodium (Enoxaparin 40 Mg/0.4 Ml Syringe) 40 mg SUBCUT Q24H [place] Ondansetron HCl (Ondansetron 4 Mg Tab.Dis) 4 mg PO Q4H PRN PRN Reason: nausea, able to take PO Sodium Chloride (Sodium Chloride 0.9% 10 Ml Syringe) 10 ml FLUSH ASDIRECTED PRN PRN Reason: Keep Vein Open Last Admin: 10/23/21 10:58 Dose: 10 ml Documented by: VAISHALI Sodium Chloride (Sodium Chloride 0.9% 2.5 Ml Syringe) 2.5 ml FLUSH ASDIRECTED PRN PRN Reason: Keep Vein Open Last Admin: 10/23/21 10:58 Dose: 2.5 ml Documented by: VAISHALI Assessment/Plan Comment:: 65 yo male admitted for COVID and dehydration. He is feeling better after receiving IV fluids in the ED. We will monitor overnight.
[2021-10-24] MEDS ORDERED: Acetaminophen 325 MG Tab PO PRN (02:37)
[2021-10-24 08:28] LABS: BLOOD UREA NITROGEN,BUN 16 mg/dL (7.0-18.0); CHLORIDE,CL 102 mmol/L (98-107); GLUCOSE RANDOM 108 mg/dL (74-106); POTASSIUM,K 3.4 mmol/L (3.5-5.1); SODIUM,NA 136 mmol/L (136-148)
[2021-10-24] MEDS ORDERED: Metoprolol Succinate 50 MG Tab.ER PO SCH (09:00)
[2021-10-24 12:46] VITALS: BP 123/81; PULSE 94
--- NOTE | 2021-10-24 12:52 | PCM.DCSUM1 ---
Discharge Summary - Discharge Data Discharge Date: 10/24/21 Discharge Disposition: Home, Self-Care 01 Condition: Stable - Referral to Home Health Primary Care Physician: PCP None - Discharge Diagnosis/Problem(s) (1) Failure to thrive in adult SNOMED Code(s): 663445842 ICD Code: R62.7 - ADULT FAILURE TO THRIVE Status: Acute Current Visit: Yes (2) COVID-19 SNOMED Code(s): 258561399 ICD Code: U07.1 - COVID-19 Status: Acute Current Visit: Yes - Patient Summary/Data Consults: Consultations 10/23/21 15:41 PT Evaluation and Treatment [CONS] Routine - Patient Instructions Diet: Regular Diet as Tolerated Activity: As Tolerated - Discharge Plan Home Medications: Home Meds Aspirin 81 mg PO DAILY #30 tab.chew 02/23/17 [Rx] Metoprolol Succinate 50 mg PO DAILY #30 tab.er.24h 02/23/17 [Rx] Forms: ED Department Discharge Referrals: PCP,None [Primary Care Provider] - - Discharge Summary/Plan Comment DC Time >30 min.: No Total # of Minutes for Discharge Time: 15 - Patient Data Vitals - Most Recent: Last Vital Signs Temp 37.6 C 10/24/21 12:00 Pulse 94 10/24/21 12:00 Resp 16 10/24/21 12:00 BP 123/81 10/24/21 12:00 Pulse Ox 92 L 10/24/21 12:00 Orthostatic Blood Pressure [ 117/75 Standing] Orthostatic Blood Pressure [ 125/85 Supine] Weight - Most Recent: 70.08 kg I&O - Last 24 hours: Intake & Output 10/23/21 10/24/21 10/24/21 22:59 06:59 14:59 Intake Total 500 Balance 500 Lab Results - Last 24 hrs: Laboratory Results - last 24 hr 10/23/21 10/23/21 10/23/21 Range/Units 11:57 11:57 12:38 WBC (4.0-11.0) K/uL RBC (4.50-5.90) M/uL Hgb (13.0-17.0) g/dL Hct (38.0-50.0) % MCV (80.0-98.0) fL MCH (27.0-32.0) pg MCHC (31.0-37.0) g/dL RDW Std Deviation (28.0-62.0) fl RDW Coeff of Tamara (11.0-15.0) % Plt Count (150-400) K/uL MPV (7.40-12.00) fL Neut % (Auto) (48.0-80.0) % Lymph % (Auto) (16.0-40.0) % [place] % (Auto) (0.0-15.0) % Eos % (Auto) (0.0-7.0) % Baso % (Auto) (0.0-1.5) % Neut # (Auto) (1.4-5.7) K/uL Lymph # (Auto) (0.6-2.4) K/uL [place] # (Auto) (0.0-0.8) K/uL Eos # (Auto) (0.0-0.7) K/uL Baso # (Auto) (0.0-0.1) K/uL Nucleated RBC % /100WBC Nucleated RBCs # K/uL INR 1.17 APTT 28.1 (18.6-31.3) SEC Sodium (136-148) mmol/L Potassium (3.5-5.1) mmol/L Chloride (98-107) mmol/L Carbon Dioxide (21.0-32.0) mmol/L BUN (7.0-18.0) mg/dL Creatinine (0.8-1.3) mg/dL Est Cr Clr Drug Dosing mL/min Estimated GFR (MDRD) ml/min Glucose (74-106) mg/dL Calcium (8.5-10.1) mg/dL Total Bilirubin (0.2-1.0) mg/dL AST (15-37) IU/L ALT (14-63) IU/L Alkaline Phosphatase (46-116) U/L Troponin I < 0.050 (0.000-0.056) ng/mL Total Protein (6.4-8.2) g/dL Albumin (3.4-5.0) g/dL Globulin (2.6-4.0) g/dL Albumin/Globulin Ratio (0.9-1.6) Urine Color DARK YELLOW Urine Appearance CLEAR Urine pH 6.0 (5.0-8.0) Ur Specific [place] >= 1.030 (1.001-1.035) Urine Protein >=300 H (NEGATIVE) mg/dL Urine Glucose (UA) NEGATIVE (NEGATIVE) mg/dL Urine Ketones NEGATIVE (NEGATIVE) mg/dL Urine Occult Blood LARGE H (NEGATIVE) Urine Nitrite NEGATIVE (NEGATIVE) Urine Bilirubin SMALL H (NEGATIVE) Urine Urobilinogen 4.0 H (<2.0) EU/dL Ur Leukocyte Esterase NEGATIVE (NEGATIVE) Urine RBC 0-2 (0-2/HPF) Urine WBC 0-2 (0-5/HPF) Ur Epithelial Cells RARE (NONE-FEW) Urine Bacteria FEW (NEGATIVE) Coarse Granular Casts 2-5 (NEGATIVE) WBC Casts 0-2 (NEGATIVE) Urine Mucus LIGHT (NONE-MOD) 10/24/21 10/24/21 Range/Units 07:34 07:34 WBC 5.21 (4.0-11.0) K/uL RBC 4.59 (4.50-5.90) M/uL Hgb 13.4 (13.0-17.0) g/dL Hct 38.6 (38.0-50.0) % MCV 84.1 (80.0-98.0) fL MCH 29.2 (27.0-32.0) pg MCHC 34.7 (31.0-37.0) g/dL RDW Std Deviation 40.0 (28.0-62.0) fl RDW Coeff of [place] 13 (11.0-15.0) % Plt Count 189 (150-400) K/uL MPV 10.10 (7.40-12.00) fL Neut % (Auto) 71.2 (48.0-80.0) % Lymph % (Auto) 21.3 (16.0-40.0) % [place] % (Auto) 6.9 (0.0-15.0) % Eos % (Auto) 0.2 (0.0-7.0) % Baso % (Auto) 0.4 (0.0-1.5) % Neut # (Auto) 3.7 (1.4-5.7) K/uL Lymph # (Auto) 1.1 (0.6-2.4) K/uL [place] # (Auto) 0.4 (0.0-0.8) K/uL Eos # (Auto) 0.0 (0.0-0.7) K/uL Baso # (Auto) 0.0 (0.0-0.1) K/uL Nucleated RBC % 0.0 /100WBC Nucleated RBCs # 0 K/uL INR APTT (18.6-31.3) SEC Sodium 136 (136-148) mmol/L Potassium 3.4 L (3.5-5.1) mmol/L Chloride 102 (98-107) mmol/L Carbon Dioxide 25.0 (21.0-32.0) mmol/L BUN 16 (7.0-18.0) mg/dL Creatinine 0.9 (0.8-1.3) mg/dL Est Cr Clr Drug Dosing 80.03 mL/min Estimated GFR (MDRD) > 60.0 ml/min Glucose 108 H (74-106) mg/dL Calcium 7.3 L (8.5-10.1) mg/dL Total Bilirubin 1.6 H (0.2-1.0) mg/dL AST 65 H (15-37) IU/L ALT 33 (14-63) IU/L Alkaline Phosphatase 28 L (46-116) U/L Troponin I (0.000-0.056) ng/mL Total Protein 5.4 L (6.4-8.2) g/dL Albumin 2.0 L (3.4-5.0) g/dL Globulin 3.4 (2.6-4.0) g/dL Albumin/Globulin Ratio 0.6 L (0.9-1.6) Urine Color Urine Appearance Urine pH (5.0-8.0) Ur Specific [place] (1.001-1.035) Urine Protein (NEGATIVE) mg/dL Urine Glucose (UA) (NEGATIVE) mg/dL Urine Ketones (NEGATIVE) mg/dL Urine Occult Blood (NEGATIVE) Urine Nitrite (NEGATIVE) Urine Bilirubin (NEGATIVE) Urine Urobilinogen (<2.0) EU/dL Ur Leukocyte Esterase (NEGATIVE) Urine RBC (0-2/HPF) Urine WBC (0-5/HPF) Ur Epithelial Cells (NONE-FEW) Urine Bacteria (NEGATIVE) Coarse Granular Casts (NEGATIVE) WBC Casts (NEGATIVE) Urine Mucus (NONE-MOD) Med Orders - Current: Current Medications Acetaminophen (Acetaminophen 325 Mg Tab) 650 mg PO Q6H PRN PRN Reason: fever Enoxaparin Sodium (Enoxaparin 40 Mg/0.4 Ml Syringe) 40 mg SUBCUT Q24H [facility] Metoprolol Succinate (Metoprolol Succinate 50 Mg Tab.Er) 50 mg PO DAILY [facility] Last Admin: 10/24/21 08:19 Dose: 50 mg Documented by: Ondansetron HCl (Ondansetron 4 Mg Tab.Dis) 4 mg PO Q4H PRN PRN Reason: nausea, able to take PO Sodium Chloride (Sodium Chloride 0.9% 10 Ml Syringe) 10 ml FLUSH ASDIRECTED PRN PRN Reason: Keep Vein Open Last Admin: 10/23/21 10:58 Dose: 10 ml Documented by: Sodium Chloride (Sodium Chloride 0.9% 2.5 Ml Syringe) 2.5 ml FLUSH ASDIRECTED PRN PRN Reason: Keep Vein Open Last Admin: 10/23/21 10:58 Dose: 2.5 ml Documented by: Discontinued Medications Enoxaparin Sodium (Enoxaparin 40 Mg/0.4 Ml Syringe) 40 mg SUBCUT Q24H [facility] Last Admin: 10/23/21 19:52 Dose: 40 mg Documented by: Sodium Chloride (Normal Saline) 1,000 mls @ 999 mls/hr IV .BOLUS ONE Stop: 10/23/21 11:38 Last Admin: 10/23/21 11:03 Dose: 999 mls/hr Documented by: Ondansetron HCl (Ondansetron 4 Mg/2 Ml Sdv) 4 mg IVPUSH ONETIME ONE Stop: 10/23/21 10:39 Last Admin: 10/23/21 10:58 Dose: 4 mg Documented by:
[2021-10-24] MEDS ORDERED: Enoxaparin 40 MG/0.4 ML Syringe SUBCUT SCH (20:00)
== END 2021-10-24 14:46 | disposition home or self-care (01) ==
LOC: MW.ED 10:07 → MW.MS 14:33
PROVIDERS: ADMIT Internal Medicine; ATTEND Internal Medicine
DX: U07.1 COVID-19 (principal); I10 Essential (primary) hypertension; E86.0 Dehydration; R62.7 Adult failure to thrive; I48.91 Unspecified atrial fibrillation; Z91.018 Allergy to other foods; Z79.899 Other long term (current) drug therapy; Z79.82 Long term (current) use of aspirin
CPT/HCPCS: 36415; 71045; 80053; 81001; 83735; 84484; 85025; 85610; 85730; 93005; 96372; 96374; 97161; 97530; 99285; A9270; G0378; J1650; J2405; J7030

== ENCOUNTER 2023-09-28 06:52 | Emergency (ER) | payer MEDICARE, OTHER ==
[2023-09-28 07:37] LABS: BASOPHILS ABSOLUTE AUTO 0.05 K/uL (0.00-0.20); BASOPHILS PERCENT AUTO 0.5 % (0.0-1.0); EOSINOPHILS ABSOLUTE AUTO 0.13 K/uL (0.00-0.45); EOSINOPHILS PERCENT AUTO 1.3 % (0.0-6.0); HEMATOCRIT 42.7 % (42.0-52.0); HEMOGLOBIN 14.6 g/dL (14.0-18.0); IMMATURE GRAN ABSOLUTE AUTO 0.04 K/uL (0.00-0.05); IMMATURE GRAN PERCENT AUTO 0.4 % (0.0-0.4); LYMPHOCYTES ABSOLUTE AUTO 1.44 K/uL (1.00-4.80); LYMPHOCYTES PERCENT AUTO 14.9 % (24.0-44.0); MEAN CORPUSCULAR HEMOGLOBIN 28.8 pg (28.0-32.0); MEAN CORPUSCULAR HGB CONC 34.2 g/dL (32.0-36.0); MEAN CORPUSCULAR VOLUME 84.2 fL (83.0-99.0); MEAN PLATELET VOLUME 9.2 fL (9.4-12.4); MONOCYTES ABSOLUTE AUTO 0.91 K/uL (0.00-0.80); MONOCYTES PERCENT AUTO 9.4 % (0.0-8.0); NEUTROPHILS PERCENT AUTO 73.5 % (41.0-71.0); PLATELET COUNT,PLT 253 K/uL (150-400); RED BLOOD CELL COUNT 5.07 M/uL (4.52-5.90); WHITE BLOOD CELL COUNT,WBC 9.67 K/uL (3.9-11.3)
[2023-09-28 08:02] LABS: A/G RATIO 1.1 (0.9-1.6); ALBUMIN 3.8 g/dL (3.4-5.0); BILIRUBIN TOTAL 1.8 mg/dL (0.2-1.0); CALCIUM 8.7 mg/dL (8.5-10.1); EST CRCL DRUG DOSING (CG) 77.6 mL/min; POTASSIUM,K 3.8 mmol/L (3.5-5.1); PROTEIN TOTAL,TP 7.2 g/dL (6.4-8.2)
[2023-09-28 08:19] VITALS: BP 127/104; PULSE 84
== END 2023-09-28 08:17 | disposition home or self-care (01) ==
LOC: MW.ED 06:52
DX: I10 Essential (primary) hypertension (principal); Z79.82 Long term (current) use of aspirin; Z79.899 Other long term (current) drug therapy; Z91.018 Allergy to other foods; Z20.822 Contact with and (suspected) exposure to COVID-19
CPT/HCPCS: 36415; 71045; 71045-26; 80053; 84484; 85025; 93005; 99284

== ENCOUNTER 2023-11-09 14:21 | Emergency (ER) | payer MEDICARE, OTHER ==
[2023-11-09] MEDS ORDERED: Levofloxacin/Dextrose 5%-Water 500 MG in Premix Bag 1 BAG IV STA (15:14)
[2023-11-09] MEDS ORDERED: Sodium Chloride 0.9% 500 ML IV STA (15:15)
[2023-11-09 15:39] LABS: BASOPHILS ABSOLUTE AUTO 0.04 K/uL (0.00-0.20); BASOPHILS PERCENT AUTO 0.5 % (0.0-1.0); EOSINOPHILS ABSOLUTE AUTO 0.09 K/uL (0.00-0.45); EOSINOPHILS PERCENT AUTO 1.1 % (0.0-6.0); HEMATOCRIT 39.5 % (42.0-52.0); HEMOGLOBIN 13.4 g/dL (14.0-18.0); IMMATURE GRAN ABSOLUTE AUTO 0.01 K/uL (0.00-0.05); IMMATURE GRAN PERCENT AUTO 0.1 % (0.0-0.4); LYMPHOCYTES ABSOLUTE AUTO 0.85 K/uL (1.00-4.80); LYMPHOCYTES PERCENT AUTO 10.4 % (24.0-44.0); MEAN CORPUSCULAR HEMOGLOBIN 29.1 pg (28.0-32.0); MEAN CORPUSCULAR HGB CONC 33.9 g/dL (32.0-36.0); MEAN CORPUSCULAR VOLUME 85.9 fL (83.0-99.0); MEAN PLATELET VOLUME 9.6 fL (9.4-12.4); MONOCYTES ABSOLUTE AUTO 1.11 K/uL (0.00-0.80); MONOCYTES PERCENT AUTO 13.6 % (0.0-8.0); NEUTROPHILS ABSOLUTE AUTO 6.09 K/uL (1.80-7.70); NEUTROPHILS PERCENT AUTO 74.3 % (41.0-71.0); PLATELET COUNT,PLT 236 K/uL (150-400); WHITE BLOOD CELL COUNT,WBC 8.19 K/uL (3.9-11.3)
[2023-11-09 15:58] LABS: INR 1.23 (0.86-1.11); PTT,PARTIAL THROMBOPLSTIN TIME 29.9 SEC (23.9-30.7)
[2023-11-09 16:06] LABS: ALBUMIN 3.3 g/dL (3.4-5.0); BILIRUBIN TOTAL 1.2 mg/dL (0.2-1.0); CALCIUM 8.4 mg/dL (8.5-10.1); CARBON DIOXIDE,CO2 25.1 mmol/L (21.0-32.0); CREATININE 1.1 mg/dL (0.8-1.3); EST CRCL DRUG DOSING (CG) 70.55 mL/min; POTASSIUM,K 3.6 mmol/L (3.5-5.1); PROTEIN TOTAL,TP 6.6 g/dL (6.4-8.2)
[2023-11-09 16:16] LABS: CORONAVIRUS COVID-19 NAA NEGATIVE (NEGATIVE); INFLUENZA A NAA NEGATIVE (NEGATIVE); INFLUENZA B NAA NEGATIVE (NEGATIVE); RESPIRATORY SYNCYTIAL VIR NAA POSITIVE (NEGATIVE)
[2023-11-09] MEDS ORDERED: Iopamidol 755 MG/ML 500 ML Multipack Bottle IVPUSH STA (16:45)
[2023-11-09] MEDS ORDERED: Dexamethasone 4 MG Tab PO STA (19:32)
[2023-11-09 20:00] VITALS: BP 147/106; PULSE 113
== END 2023-11-09 19:59 | disposition home or self-care (01) ==
LOC: MW.ED 14:21
DX: J21.0 Acute bronchiolitis due to respiratory syncytial virus (principal); J90 Pleural effusion, not elsewhere classified; I10 Essential (primary) hypertension; Z79.899 Other long term (current) drug therapy; Z91.018 Allergy to other foods
CPT/HCPCS: 0241U; 36415; 71275; 80053; 83690; 83735; 84484; 85025; 85610; 85730; 96365; 99285; J1956; J7030; J8540; Q9967; 99284